=== PATIENT | male | born 1945 | race Caucasian/White ===

== ENCOUNTER → 2017-01-22 | Outpatient (CLI) | payer MEDICARE ==
--- NOTE | 2017-01-22 10:20 | XR ---
EXAMINATION TYPE: XR lumbosacral spine min 4V DATE OF EXAM ORDERED: 01/22/2017 9:52 AM HISTORY: R10.9 chronic rt flank pain. COMPARISON: None. FINDINGS: There is minimal wedging of the L1 vertebral body, likely developmental. Vertebral body he ight and alignment are otherwise maintained. There is no spondylolysis or spondylolisthesis. There is disc space loss at L4-5 and is mild hypertrophic spondylosis at L2-3, L3-4 and L4-5. There is minima l facet arthropathy in the lower lumbar facets. The pedicles are intact. IMPRESSION: 1. NO ACUTE OSSEOUS LESION. 2. MILD DEGENERATIVE CHANGE.
== END | disposition home or self-care (01) ==
LOC: RADXRMAIN 09:30
PROVIDERS: ATTEND Family Medicine
DX: M47.816 Spondylosis without myelopathy or radiculopathy, lumbar region (principal); R10.9 Unspecified abdominal pain
CPT/HCPCS: 72110

== ENCOUNTER 2017-01-25 08:49 | Day surgery (SDC) | payer MEDICARE ==
[2017-01-22 15:59] VITALS: BMI 22.6
[~2017-01-25 08:49] MED LIST: LACTATED RINGERS 1,000 ML IV SCH
[2017-01-25] MEDS ORDERED: LIDOCAINE 1% 20 ML VIAL (10MG/ML) FOR IV START INTRADERMA ONE (10:15)
[2017-01-25 10:24] VITALS: TEMP 97.9
[2017-01-25] MEDS ORDERED: PROPOFOL 10 MG/ML 20 ML VIAL IV ONE (10:44)
[2017-01-25] MEDS ORDERED: LIDOCAINE 1% INJ 10MG/ML (20 ML MDV) ONE (10:44)
--- NOTE | 2017-01-25 10:52 | P.PCN ---
Date of Procedure: 01/25/17 Procedure(s) Performed: BRIEF HISTORY: Patient is a 71-year-old, pleasant, white male, scheduled for an upper endoscopy as a part of evaluation of intermittent dysphagia to solids for the last 1 year duration. He also completed throat irritation and throat discomfort. He is been on Prilosec 20 mg daily for several months with no improvement in his symptoms. He is hence scheduled for an upper endoscopy with possible dilation today. PROCEDURE PERFORMED: Esophagogastroduodenoscopy with biopsy. PREOPERATIVE DIAGNOSIS: Dysphagia. IV sedation per anesthesia. PROCEDURE: After informed consent was obtained, the patient was brought into the endoscopy unit. IV conscious sedation was administered by Anesthesia under continuous monitoring. Initially the Olympus GIF-140 video endoscope was inserted into the mouth. Esophagus intubated without any difficulty. It was gradually advanced into the stomach and duodenum and carefully examined. The bulb and the second part of the duodenum appeared normal. The scope at this time was withdrawn to the stomach, adequately insufflated with air, and upon careful examination, mucosa of the antrum, body, cardia and the fundus appeared normal. The scope was then withdrawn into the esophagus. Moderate size hiatal hernia noted. The GE junction was located at 35 cm from the incisors. 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 The rest of the esophagus appeared normal. There were no erosions or ulcerations seen and the patient tolerated the procedure well. IMPRESSION: 1. 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 2. Moderate size hiatal hernia. RECOMMENDATIONS: The findings of this examination were discussed with the patient as well as his family. He was advised to follow with the biopsy results. If the biopsy confirms presence of Arredondo's esophagus he can have a repeat upper endoscopy in 2 years. In the meantime was advised to increase her Prilosec to 20 mg twice daily and follow antireflux measures.
[2017-01-25 11:02] VITALS: RESP 16
[2017-01-25 11:16] VITALS: BP 139/81; PULSE 62
== END 2017-01-25 11:46 | disposition home or self-care (01) ==
LOC: ORWHC2ENDO 08:49
PROVIDERS: ATTEND Internal Medicine Gastroenterology
DX: R13.10 Dysphagia, unspecified (principal); K22.70 Barrett's esophagus without dysplasia; K44.9 Diaphragmatic hernia without obstruction or gangrene; I10 Essential (primary) hypertension; E78.5 Hyperlipidemia, unspecified; Z79.82 Long term (current) use of aspirin; Z79.899 Other long term (current) drug therapy; Z79.1 Long term (current) use of non-steroidal anti-inflammatories (NSAID)
CPT/HCPCS: 88305; 43239; J2001; J2704

== ENCOUNTER 2020-07-01 09:17 | Day surgery (SDC) | payer MEDICARE ==
[2020-06-29 10:16] VITALS: BMI 23.0
[~2020-07-01 09:17] MED LIST changes: +LIDOCAINE 1% (10MG/ML) FOR IV START INTRADERMA PRN
[2020-07-01 09:37] VITALS: PULSE 58; TEMP 97.8
[2020-07-01] MEDS ORDERED: LACTATED RINGERS 1,000 ML IV ONE (09:37)
[2020-07-01] MEDS ORDERED: PROPOFOL 10 MG/ML 20 ML VIAL IV ONE (10:35)
--- NOTE | 2020-07-01 10:48 | P.PCN ---
Date of Procedure: 07/01/20 Procedure(s) Performed: BRIEF HISTORY: Patient is a 75-year-old, pleasant, white male male scheduled for an upper endoscopy as a part of surveillance of Arredondo's esophagus. PROCEDURE PERFORMED: Esophagogastroduodenoscopy with biopsy. PREOPERATIVE DIAGNOSIS: GERD/Arredondo's esophagus. IV sedation per anesthesia. PROCEDURE: After informed consent was obtained, the patient was brought into the endoscopy unit. IV sedation was administered by Anesthesia under continuous monitoring. Initially the Olympus GIF-140 video endoscope was inserted into the mouth. Esophagus intubated without any difficulty. It was gradually advanced into the stomach and duodenum and carefully examined. The bulb and the second part of the duodenum appeared normal. The scope at this time was withdrawn to the stomach, adequately insufflated with air, and upon careful examination, mucosa of the antrum, body, cardia and the fundus appeared normal. The scope was then withdrawn into the esophagus. Small hiatal hernia noted. The GE junction was located at 35 cm from the incisors. There was long segment Arredondo's esopha vladimir extending from 30-35 cm from the incisors and multiple biopsies were done from this area. Just proximal to the Arredondo's Esophagus There Were Linear Erosions Consistent with LA Grade B Reflux Esophagitis The rest of the esophagus appeared normal. The patient tolerated the procedure well. IMPRESSION: 1. 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 2. Linear erosions in the distal esophagus consistent with LA grade B reflux esophagitis 3. Small hiatal hernia. RECOMMENDATIONS: The findings of this examination were discussed with the patient as well as his family. He was advised to start on Prilosec 20 mg daily and follow antireflux measures. If the biopsy does not show any evidence of dysplasia he can have a repeat upper endoscopy in 2 years.
[2020-07-01 10:55] VITALS: BP 143/86; RESP 16
== END 2020-07-01 11:25 | disposition home or self-care (01) ==
LOC: ORWHC2ENDO 09:17
PROVIDERS: ATTEND Internal Medicine Gastroenterology
DX: K22.70 Barrett's esophagus without dysplasia (principal); K21.0 Gastro-esophageal reflux disease with esophagitis; K44.9 Diaphragmatic hernia without obstruction or gangrene; I10 Essential (primary) hypertension; E78.5 Hyperlipidemia, unspecified; M19.90 Unspecified osteoarthritis, unspecified site; Z79.82 Long term (current) use of aspirin; Z79.899 Other long term (current) drug therapy
CPT/HCPCS: 43239; J2704; 88305

== ENCOUNTER 2023-07-29 11:01 | Inpatient (IN) | payer MEDICARE ==
--- NOTE | 2023-07-29 11:47 | ED ---
General Adult HPI - General Chief complaint: Chest Pain Stated complaint: Chest Pain Time Seen by Provider: 07/29/23 11:06 Source: patient, RN notes reviewed, old records reviewed Mode of arrival: ambulatory Limitations: no limitations - History of Present Illness Initial comments: 78-year-old male presents for evaluation of central chest pain with associated lightheadedness. Symptoms were more severe throughout the middle the night and the patient presents at around 11 AM. He states his symptoms have improved at this time. He has been complaining of intermittent lightheadedness and central chest pain over the past several months. He also has some exertional dyspnea. No prior history of CAD. Denies lower extremity pain or swelling. Denies fever or cough. - Related Data Home Medications Medication Instructions Recorded Confirmed Metoprolol Succinate [Toprol XL] 50 mg PO DAILY 09/20/15 07/29/23 Simvastatin [Zocor] 20 mg PO DAILY 09/20/15 07/29/23 Tamsulosin HCl [Flomax] 0.4 mg PO HS 07/29/23 07/29/23 Allergies Allergy/AdvReac Type Severity Reaction Status Date / Time No Known Allergies Allergy Verified 07/29/23 12:40 Review of Systems ROS Statement: Those systems with pertinent positive or pertinent negative responses have been documented in the HPI. ROS Other: All systems not noted in ROS Statement are negative. Past Medical History Past Medical History: Cancer, GERD/Reflux, Hyperlipidemia, Hypertension, Osteoarthritis (OA) Additional Past Medical History / Comment(s): SKIN CANCER , TROUBLE SWALLOWING, ELEVATED LIVER ENZYMES-PREVIOUSLY WAS A HEAVY DRINKER" History of Any Multi-Drug Resistant Organisms: None Reported Past Surgical History: Hernia Repair, Orthopedic Surgery Additional Past Surgical History / Comment(s): RIGHT SHOULDER SURG, ING. HERNIA, COLONOSCOPY, CATARACT -BILATERAL EYES, EXCISION OF LESION, Past Anesthesia/Blood Transfusion Reactions: No Reported Reaction Past Psychological History: No Psychological Hx Reported Smoking Status: Former smoker Past Alcohol Use History: None Reported Past Drug Use History: None Reported - Past Family History Mother Family Medical History: Cancer Father Family Medical History: Cancer General Exam Limitations: no limitations General appearance: alert, in no apparent distress Head exam: Present: atraumatic, normocephalic Eye exam: Present: normal appearance, PERRL Neck exam: Present: normal inspection. Absent: tenderness, meningismus Respiratory exam: Present: normal lung sounds bilaterally. Absent: respiratory distress Cardiovascular Exam: Present: regular rate, normal rhythm GI/Abdominal exam: Present: soft. Absent: distended, tenderness, guarding Extremities exam: Present: normal inspection, normal capillary refill. Absent: pedal edema, calf tenderness Neurological exam: Present: alert, oriented X3, CN II-XII intact. Absent: motor sensory deficit Psychiatric exam: Present: normal affect, normal mood Skin exam: Present: warm, dry, intact. Absent: cyanosis, diaphoretic Course Vital Signs 07/29/23 11:02 Temperature 97 F L Pulse Rate 61 Respiratory 22 Rate Blood Pressure 157/75 O2 Sat by Pulse 100 Oximetry Medical Decision Making - Medical Decision Making Was pt. sent in by a medical professional or institution (, PA, PATTERN VAULT CLERK, urgent care, hospital, or skilled nursing...) When possible be specific @ -No Did you speak to anyone other than the patient for history (EMS, parent, family, police, friend...)? What history was obtained from this source @ -No Did you review nursing and triage notes (agree or disagree)? Why? @ -I reviewed and agree with nursing and triage notes Were old charts reviewed (outside hosp., previous admission, EMS record, old EKG, old radiological studies, urgent care reports/EKG's, skilled nursing records)? Report findings @ -No old charts were reviewed Differential Diagnosis (chest pain, altered mental status, abdominal pain women, abdominal pain men, vaginal bleeding, weakness, fever, dyspnea, syncope, head ache, dizziness, GI bleed, back pain, seizure, CVA, palpatations, mental health, musculoskeletal)? @ Differential Chest Pain: Stable Angina, Unstable Angina, STEMI, NSTEMI Aortic Dissection, Pneumothorax, Musculoskeletal, Esophageal Spasm GERD, Cholecystitis, Pancreatitis, Zoster, this is not meant to be an all-inclusive list. EKG interpreted by me (3pts min.). @ -[Sinus rhythm left axis deviation, intraventricular conduction delay rate is 63, ME interval 143, QRS duration 108, QTC 408, no old for comparison. X-rays interpreted by me (1pt min.). @ -Chest x-ray negative for acute cardiopulmonary findings CT interpreted by me (1pt min.). @ -None done U/S interpreted by me (1pt. min.). @ -None done What testing was considered but not performed or refused? (CT, X-rays, U/S, labs)? Why? @ -None What meds were considered but not given or refused? Why? @ -None Did you discuss the management of the patient with other professionals (professionals i.e. , PA, PATTERN VAULT CLERK, lab, RT, psych nurse, neonatal social worker, chainstitch sewing machine operator, teacher, field health officer, case sealer)? Give summary @ Case discussed with Dr. Rodríguez who will admit and Dr. No covering for cardiology Was smoking cessation discussed for >3mins.? @ -No Was critical care preformed (if so, how long)? @ -yes 35 min Were there social determinants of health that impacted care today? How? (Homelessness, low income, unemployed, alcoholism, drug addiction, transportation, low edu. Level, literacy, decrease access to med. care, halfway, rehab)? @ -No Was there de-escalation of care discussed even if they declined (Discuss DNR or withdrawal of care, Hospice)? DNR status @ -No What co-morbidities impacted this encounter? (DM, HTN, Smoking, COPD, CAD, Cancer, CVA, ARF, Chemo, Hep., AIDS, mental health diagnosis, sleep apnea, morbid obesity)? @ -None Was patient admitted / discharged? Hospital course, mention meds given and route, prescriptions, significant lab abnormalities, going to OR and other pertinent info. @ -[78-year-old male with an episode of chest pain which began yesterday evening lasting several hours. Substernal chest pain and pressure. No prior history of CAD. EKG shows a nonspecific intraventricular conduction delay without ST segment elevation, sinus rhythm. Chest x-ray is clear. Normal CBC, normal CMP, troponin is 0.29. Patient's chest pain represents and non-ST segment elevated TN or he is chest pain-free while in the emergency department. Undiagnosed new problem with uncertain prognosis? @ -No Drug Therapy requiring intensive monitoring for toxicity (Heparin, Nitro, Insulin, Cardizem)? @ -No Were any procedures done? @ -No Diagnosis/symptom? @ -NSTEMI Acute, or Chronic, or Acute on Chronic? @ -[acute Uncomplicated (without systemic symptoms) or Complicated (systemic symptoms)? @ -[complicated Side effects of treatment? @ -No Exacerbation, Progression, or Severe Exacerbation? @ -No Poses a threat to life or bodily function? How? (Chest pain, USA, TN, pneumonia, PE, COPD, DKA, ARF, appy, cholecystitis, CVA, Diverticulitis, Homicidal, Suicidal, threat to staff... and all critical care pts) @ -[yes, ACS - Lab Data Result diagrams: 07/29/23 11:42 07/29/23 11:42 Lab Results 07/29/23 07/29/23 07/29/23 Range/Units 11:42 11:42 11:42 WBC 4.2 (3.8-10.6) k/uL RBC 4.41 (4.30-5.90) m/uL Hgb 14.1 (13.0-17.5) gm/dL Hct 42.2 (39.0-53.0) % MCV 95.7 (80.0-100.0) fL MCH 32.0 (25.0-35.0) pg MCHC 33.4 (31.0-37.0) g/dL RDW 13.1 (11.5-15.5) % Plt Count 136 L (150-450) k/uL MPV 7.8 Neutrophils % 78 % Lymphocytes % 14 % Monocytes % 5 % Eosinophils % 2 % Basophils % 0 % Neutrophils # 3.3 (1.3-7.7) k/uL Lymphocytes # 0.6 L (1.0-4.8) k/uL Monocytes # 0.2 (0-1.0) k/uL Eosinophils # 0.1 (0-0.7) k/uL Basophils # 0.0 (0-0.2) k/uL PT 10.3 (9.0-12.0) sec INR 1.0 (<1.2) APTT 22.2 (22.0-30.0) sec Sodium 139 (137-145) mmol/L Potassium 4.7 (3.5-5.1) mmol/L Chloride 102 (98-107) mmol/L Carbon Dioxide 29 (22-30) mmol/L Anion Gap 8 mmol/L BUN 30 H (9-20) mg/dL Creatinine 1.09 (0.66-1.25) mg/dL Est GFR (CKD-EPI)AfAm 76 (>60 ml/min/1.73 sqM) Est GFR (CKD-EPI)NonAf 66 (>60 ml/min/1.73 sqM) Glucose 191 H (74-99) mg/dL Calcium 9.2 (8.4-10.2) mg/dL Magnesium 2.0 (1.6-2.3) mg/dL Total Bilirubin 1.1 (0.2-1.3) mg/dL AST 26 (17-59) U/L ALT 23 (4-49) U/L Alkaline Phosphatase 39 (38-126) U/L Troponin I (0.000-0.034) ng/mL NT-Pro-B Natriuret Pep 635 pg/mL Total Protein 6.6 (6.3-8.2) g/dL Albumin 4.2 (3.5-5.0) g/dL 07/29/23 Range/Units 11:42 WBC (3.8-10.6) k/uL RBC (4.30-5.90) m/uL Hgb (13.0-17.5) gm/dL Hct (39.0-53.0) % MCV (80.0-100.0) fL MCH (25.0-35.0) pg MCHC (31.0-37.0) g/dL RDW (11.5-15.5) % Plt Count (150-450) k/uL MPV Neutrophils % % Lymphocytes % % Monocytes % % Eosinophils % % Basophils % % Neutrophils # (1.3-7.7) k/uL Lymphocytes # (1.0-4.8) k/uL Monocytes # (0-1.0) k/uL Eosinophils # (0-0.7) k/uL Basophils # (0-0.2) k/uL PT (9.0-12.0) sec INR (<1.2) APTT (22.0-30.0) sec Sodium (137-145) mmol/L Potassium (3.5-5.1) mmol/L Chloride (98-107) mmol/L Carbon Dioxide (22-30) mmol/L Anion Gap mmol/L BUN (9-20) mg/dL Creatinine (0.66-1.25) mg/dL Est GFR (CKD-EPI)AfAm (>60 ml/min/1.73 sqM) Est GFR (CKD-EPI)NonAf (>60 ml/min/1.73 sqM) Glucose (74-99) mg/dL Calcium (8.4-10.2) mg/dL Magnesium (1.6-2.3) mg/dL Total Bilirubin (0.2-1.3) mg/dL AST (17-59) U/L ALT (4-49) U/L Alkaline Phosphatase (38-126) U/L Troponin I 0.299 H* (0.000-0.034) ng/mL NT-Pro-B Natriuret Pep pg/mL Total Protein (6.3-8.2) g/dL Albumin (3.5-5.0) g/dL Critical Care Time Critical Care Time: Yes Total Critical Care Time: 35 Disposition Clinical Impression: Acute non-ST elevation myocardial infarction (NSTEMI) Disposition: ADMITTED IP TO THIS HOSP Condition: Serious Is patient prescribed a controlled substance at d/c from ED?: No Referrals: Gus Rodríguez MD [Primary Care Provider] - 1-2 days Time of Disposition: 12:57
[2023-07-29 11:49] LABS: Basophils % (A) 0 %; Eosinophils # (A) 0.1 k/uL (0-0.7); Eosinophils % (A) 2 %; HCT 42.2 % (39.0-53.0); HGB 14.1 gm/dL (13.0-17.5); Lymphocytes # (A) 0.6 k/uL (1.0-4.8); Lymphocytes % (A) 14 %; MCHC 33.4 g/dL (31.0-37.0); MCV 95.7 fL (80.0-100.0); Mean Platelet Volume 7.8; Monocytes # (A) 0.2 k/uL (0-1.0); Monocytes % (A) 5 %; Neutrophils # (A) 3.3 k/uL (1.3-7.7); Neutrophils % (A) 78 %; Platelet Count 136 k/uL (150-450); RBC 4.41 m/uL (4.30-5.90); RDW 13.1 % (11.5-15.5); WBC 4.2 k/uL (3.8-10.6)
--- NOTE | 2023-07-29 11:55 | XR ---
EXAMINATION TYPE: XR chest 2V DATE OF EXAM: 07/29/2023 COMPARISON: NONE TECHNIQUE: PA and lateral views submitted. HISTORY: Chest pain FINDINGS: The lungs are clear and there is no pneumothorax, pleural effusion, or focal pneumonia. Heart size normal and no overt failure. Osseous structures demonstrate hypertrophic and degenerative changes of the spine. Hyperinflation suggests COPD. IMPRESSION: 1. No acute process.
[2023-07-29 11:58] LABS: Partial Thromboplastin Time 22.2 sec (22.0-30.0); Prothrombin Time 10.3 sec (9.0-12.0)
[2023-07-29 12:05] LABS: ALT 23 U/L (4-49); AST 26 U/L (17-59); African American GFR (CKD) 76 (>60 ml/min/1.73 sqM); Albumin 4.2 g/dL (3.5-5.0); Alkaline Phosphatase 39 U/L (38-126); Anion Gap 8 mmol/L; Blood Urea Nitrogen 30 mg/dL (9-20); Calcium 9.2 mg/dL (8.4-10.2); Carbon Dioxide 29 mmol/L (22-30); Chloride 102 mmol/L (98-107); Glucose 191 mg/dL (74-99); Non-African American GFR(CKD) 66 (>60 ml/min/1.73 sqM); Potassium 4.7 mmol/L (3.5-5.1); Sodium 139 mmol/L (137-145); Total Bilirubin 1.1 mg/dL (0.2-1.3); Total Protein 6.6 g/dL (6.3-8.2)
[2023-07-29 12:07] LABS: NT-Pro-B-Type Natriuretic Pept 635 pg/mL
[2023-07-29] MEDS ORDERED: NITROGLYCERIN SL TABS 0.4 MG TAB SUBLINGUAL PRN ×3 (12:47→17:11)
[2023-07-29] MEDS ORDERED: ASPIRIN 325 MG TAB PO STA ×2 (12:47→14:31)
[2023-07-29] MEDS ORDERED: HEPARIN SODIUM 1,000 UN/ML (10ML VL) IV ONE (12:47)
[2023-07-29] MEDS ORDERED: HEPARIN SOD,PORK IN 0.45% NACL 25,000 UNIT in 0.45% NACL 1 250ML.BAG IV SCH (13:00)
[2023-07-29] MEDS ORDERED: ATORVASTATIN 80 MG TAB PO STA (14:31)
[2023-07-29] MEDS ORDERED: ALPRAZolam 0.25 MG TAB PO PRN (14:31)
[2023-07-29] MEDS ORDERED: ALPRAZolam 0.5 MG TAB PO PRN (14:31)
--- NOTE | 2023-07-29 14:42 | P.CRDCN ---
History of Present Illness History of present illness: HISTORY OF PRESENT ILLNESS: This is a 78-year-old female with a past medical history significant for hypertension and hyperlipidemia. Patient does not follow with a hvac mechanical engineer. We have been asked to see the patient in consultation for chest pain. Patient examined at the bedside. Patient states he started feeling short of breath with exertion back in May. He states that yesterday evening around 10 PM he began to have chest pain. He states the pain was in the middle of his chest and radiated into his back between his shoulder blades. He also reports feeling short of breath and states history he felt like he could not catch his breath. He denies any nausea or vomiting. He states that he went to lay down for a while and thought maybe the pain would go away. He states he continued to have pain intermittently throughout the night. This morning, his girlfriend was on his way over to pick him up for a doctor's appointment. He told her about his symptoms and she decided to bring him to the emergency room for further evaluation instead. At the time of examination, the patient reports minimal discomfort and is rating it 1/10. * EKG reveals sinus mechanism with nonspecific ST-T wave changes. Repeat EKG reveals biphasic T waves in inferior leads. * Chest xray negative for acute process * Laboratory data: WBC 4.2. Hemoglobin 14.1. Platelet count 136. Sodium 139. Potassium 4.7. BUN 30. Creatinine 1.09. Troponin 0.299. ProBNP 635. * Current home cardiac medications include simvastatin 20 mg daily and metoprolol succinate 50 mg daily REVIEW OF SYSTEMS: At the time of my exam: CONSTITUTIONAL: Denies fever or chills. HEENT: Denies blurred vision, vision changes, or eye pain. Denies hemoptysis CARDIOVASCULAR: Denies chest pain. Denies orthopnea. Denies PND. Denies palpitations RESPIRATORY: Denies shortness of breath. GASTROINTESTINAL: Denies abdominal pain. Denies nausea or vomiting. HEMATOLOGIC: Denies bleeding disorders. GENITOURINARY: Denies any blood in urine. SKIN: Denies pruitis. Denies rash. PHYSICAL EXAM: VITAL SIGNS: Reviewed. GENERAL: Well-developed in no acute distress. HEENT: Head is normocephalic. Pupils are equal, round. Sclerae anicteric. Mucous membranes of the mouth are moist. Neck supple. No JVD or thyromegaly LUNGS: Respirations even and unlabored. Lungs essentially clear to auscultation bilaterally. HEART: Regular rate and rhythm. S1 and S2 heard. ABDOMEN: Soft. Nondistended. Nontender. EXTREMITIES: Normal range of motion. No clubbing or cyanosis. Peripheral pulses intact. No lower extremity edema NEUROLOGIC: Awake and alert. Oriented x 3. ASSESSMENT: Non-STEMI Hypertension Hyperlipidemia PLAN: Obtain 2-D echo to assess cardiac structure and function Continue IV heparin Begin IV nitroglycerin Add aspirin 81 mg daily and atorvastatin 80 mg at night Continue metoprolol Patient to undergo cardiac catheterization today with Dr. No Further recommendations pending patient's course Nurse practitioner note has been reviewed by physician. Signing provider agrees with the documented findings, assessment, and plan of care. Past Medical History Past Medical History: Cancer, GERD/Reflux, Hyperlipidemia, Hypertension, Osteoarthritis (OA) Additional Past Medical History / Comment(s): SKIN CANCER , TROUBLE SWALLOWING, ELEVATED LIVER ENZYMES-PREVIOUSLY WAS A HEAVY DRINKER" History of Any Multi-Drug Resistant Organisms: None Reported Past Surgical History: Hernia Repair, Orthopedic Surgery Additional Past Surgical History / Comment(s): RIGHT SHOULDER SURG, ING. HERNIA, COLONOSCOPY, CATARACT -BILATERAL EYES, EXCISION OF LESION, Past Anesthesia/Blood Transfusion Reactions: No Reported Reaction Past Psychological History: No Psychological Hx Reported Smoking Status: Former smoker Past Alcohol Use History: None Reported Past Drug Use History: None Reported - Past Family History Mother Family Medical History: Cancer Father Family Medical History: Cancer Medications and Allergies Home Medications Medication Instructions Recorded Confirmed Type Metoprolol Succinate [Toprol XL] 50 mg PO DAILY 09/20/15 07/29/23 History Simvastatin [Zocor] 20 mg PO DAILY 09/20/15 07/29/23 History Tamsulosin HCl [Flomax] 0.4 mg PO HS 07/29/23 07/29/23 History Allergies Allergy/AdvReac Type Severity Reaction Status Date / Time No Known Allergies Allergy Verified 07/29/23 12:40 Physical Exam Vitals: Vital Signs Temp Pulse Resp BP Pulse Ox 07/29/23 13:20 60 18 141/78 100 07/29/23 11:02 97 F L 61 22 157/75 100 Intake and Output 07/28/23 07/29/23 07/29/23 22:59 06:59 14:59 Other: Weight 72.575 kg Results 07/29/23 11:42 07/29/23 11:42 Cardiac Enzymes 07/29/23 07/29/23 Range/Units 11:42 11:42 AST 26 (17-59) U/L Troponin I 0.299 H* (0.000-0.034) ng/mL Coagulation 07/29/23 Range/Units 11:42 PT 10.3 (9.0-12.0) sec APTT 22.2 (22.0-30.0) sec CBC 07/29/23 Range/Units 11:42 WBC 4.2 (3.8-10.6) k/uL RBC 4.41 (4.30-5.90) m/uL Hgb 14.1 (13.0-17.5) gm/dL Hct 42.2 (39.0-53.0) % Plt Count 136 L (150-450) k/uL Comprehensive Metabolic Panel 07/29/23 Range/Units 11:42 Sodium 139 (137-145) mmol/L Potassium 4.7 (3.5-5.1) mmol/L Chloride 102 (98-107) mmol/L Carbon Dioxide 29 (22-30) mmol/L BUN 30 H (9-20) mg/dL Creatinine 1.09 (0.66-1.25) mg/dL Glucose 191 H (74-99) mg/dL Calcium 9.2 (8.4-10.2) mg/dL AST 26 (17-59) U/L ALT 23 (4-49) U/L Alkaline Phosphatase 39 (38-126) U/L Total Protein 6.6 (6.3-8.2) g/dL Albumin 4.2 (3.5-5.0) g/dL Current Medications Generic Name Dose Route Start Last Admin Trade Name Freq PRN Reason Stop Dose Admin Alprazolam 0.25 mg 07/29/23 14:31 Alprazolam 0.25 Mg Tab PO Q6HR PRN Mild Anxiety Alprazolam 0.5 mg 07/29/23 14:31 Alprazolam 0.5 Mg Tab PO Q6HR PRN Moderate Anxiety Aspirin 325 mg 07/30/23 09:00 Aspirin 325 Mg Tab PO DAILY CE Heparin Sodium/Sodium Chloride 250 mls @ 8.709 mls/hr 10/02/23 13:00 07/29/23 13:22 25,000 unit/ Sodium Chloride IV 12 units/kg/hr .Q24H CE 8.709 mls/hr Administration Protocol 12 UNITS/KG/HR Heparin Sodium (Porcine) 10, 1,001 mls @ 999 mls/hr 07/30/23 07:00 000 unit/ Sodium Chloride IRRIGATION 07/30/23 23:00 ONCE PRN INTRA-OP Heparin Sodium (Porcine) 2,500 250.5 mls @ 250 mls/hr 07/30/23 07:00 unit/ Sodium Chloride IRRIGATION 07/30/23 23:00 ONCE PRN INTRA-OP Sodium Chloride 1,000 ml/ IV 1,000 mls @ 72.575 mls/hr 07/29/23 14:45 Solution IV .[id number] CE 1 ML/KG/HR Nitroglycerin/Dextrose 50 mg/ 250 mls @ 1.5 mls/hr 07/29/23 14:45 IV Solution IV .Q24H CE Protocol 5 MCG/MIN Metoprolol Tartrate 25 mg 07/29/23 21:00 Metoprolol Tartrate 25 Mg Tab PO BID CE Nitroglycerin 0.4 mg 07/29/23 12:47 Nitroglycerin Sl Tabs 0.4 Mg Tab SUBLINGUAL Q5M PRN Chest Pain Nitroglycerin 0.4 mg 07/29/23 14:31 Nitroglycerin Sl Tabs 0.4 Mg Tab SUBLINGUAL Q5M PRN Chest Pain Intake and Output 07/28/23 07/29/23 07/29/23 22:59 06:59 14:59 Other: Weight 72.575 kg Patient Weight 07/30/23 06:59 Weight 72.575 kg 07/29/23 11:42 07/29/23 11:42
[2023-07-29] MEDS ORDERED: NITROGLYCERIN-D5W PMX 50 MG in DEXTROSE/WATER 1 250ML.BAG IV SCH (14:45)
[2023-07-29] MEDS: SODIUM CHLORIDE 0.9% 1,000 ML in EMPTY BAG 1 BAG IV SCH (14:54)
[2023-07-29] MEDS ORDERED: HEPARIN SODIUM 1,000 UN/ML (10ML VL) ONE (15:49)
[2023-07-29] MEDS ORDERED: VERAPAMIL 2.5 MG/ML 2 ML AMP ONE (15:49)
[2023-07-29] MEDS ORDERED: LIDOCAINE 1% INJ 10MG/ML (20 ML MDV) ONE (15:49)
[2023-07-29] MEDS ORDERED: IV FLUID CONTINUATION 1,000 ML IV ONE (16:10)
[2023-07-29] MEDS ORDERED: MIDAZOLAM 2 MG/2 ML VIAL IVP ONE (16:23)
[2023-07-29] MEDS ORDERED: LIDOCAINE 1% INJ 10MG/ML (5 ML VIAL-PF) SQ ONE (16:25)
[2023-07-29] MEDS ORDERED: VERAPAMIL SYRINGE (5 MG/10 ML) INTRAARTER ONE (16:29)
[2023-07-29] MEDS: HEPARIN SODIUM 1,000 UN/ML (10ML VL) IV ONE ×2 (16:45→17:05)
[2023-07-29] MEDS ORDERED: CLOPIDOGREL 75 MG TAB PO ONE (16:50)
[2023-07-29] MEDS ORDERED: CLOPIDOGREL 75 MG TAB ONE (16:51)
[2023-07-29] MEDS ORDERED: NITROGLYCERIN 1000MCG/10ML SYRINGE INTRACORON ONE (17:02)
[2023-07-29] MEDS ORDERED: IOPAMIDOL-370 100ML BTL INJ ONE (17:02)
[2023-07-29] MEDS ORDERED: MAG HYDROX/AL HYDROX/SIMETH 30 ML CUP PO PRN (17:11)
[2023-07-29] MEDS ORDERED: ATROPINE SULFATE 0.1 MG/ML 10ML SYRINGE IV PRN (17:11)
[2023-07-29] MEDS ORDERED: ZOLPIDEM 5 MG TAB PO PRN (17:11)
[2023-07-29] MEDS ORDERED: RX INFO: IV CONTRAST WAS GIVEN 1 EACH MISC MISCELLANE PRN (17:11)
[2023-07-29] MEDS ORDERED: SODIUM CHLORIDE 0.9% 1,000 ML in EMPTY BAG 1 BAG IV SCH (17:15)
--- NOTE | 2023-07-29 17:18 | P.PCN ---
Date of Procedure: 07/29/23 Operative Findings: CARDIAC CATHETERIZATION AND PERCUTANEOUS CORONARY INTERVENTION PERFORMING PHYSICIAN: Renato No MD, [facility] PROCEDURE PERFORMED: 1. Selective right and left coronary angiogram 2. Left heart catheterization 3. Successful stenting of proximal RCA using 3.25 x 15 mm Xience ROSHAN with an excellent angiographic results 4. Adjunctive use of intravascular imaging 5. Ultrasound guided access of the right radial artery INDICATION: Acute non-ST elevation myocardial infarction COMPLICATION: None APPROACH: Right radial artery LEVEL OF SEDATION: Moderate with the sedation time off 44 minutes PROCEDURE DESCRIPTION: After obtaining an informed consent the patient was brought to the cardiac botany laboratory assistant. The right radial artery was cannulated using puncture technique under ultrasound guidance and the micropuncture wire passed easily then I placed a 6- Irish sheath at the right radial artery. Subsequently anticoagulation was initiated using heparin with continuous ACT monitoring. Selective right and left coronary angiogram performed using JR4 and JL 3.5 catheters. Left heart catheterization was performed using the JR4 catheter which cross the aortic valve then we did pullback across the valve. The procedure was completed was no complication. After that I did intervene on the right coronary artery. SELECTIVE CORONARY ANGIOGRAM: The right coronary artery: Large caliber vessel and a dominant vessel. The proximal RCA has a critical lesion appeared to be in the range of 99.9%. That by the bifurcation of the acute marginal branch. The mid RCA has intermediate disease only and the RCA distally appeared to have mild disease only and bifurcates into PDA and PLV branches. Left main: The left main is calcified was mild disease only The left circumflex: Large caliber vessel nondominant vessel. The LCx has mild disease only and gives rises into the first and second and third OM branches all appear to have mild disease only. The left anterior descending artery: The proximal LAD appears to have mild disease only. The mid LAD after the bifurcation of the diagonal branch has a lesion appears to be in the range of 60-70%. The LAD distally appears to have mild disease only HEMODYNAMICS: The LVEDP was 4 mmHg was no significant gradient across aortic valve PCI OF THE RCA: Anticoagulation was initiated using heparin with continuous ACT monitoring. Subsequently I did engage the right coronary artery using all-right guiding catheter. After that I did wired using a whisper wire. Intravascular ultrasound was advanced over the wire but did not cross the lesion. I was able to image the very proximal right coronary artery which showed a diameter around 3. 0 millimeter to 3.25 mm. I predilated using 3 mm noncompliant balloon and subsequently I deployed 3.25 x 15 mm stent which was postdilated using 3.5 mm NC balloon. Final angiogram showed good angiographic results was LORAINE-3 flow. The procedure was completed was no complication CONCLUSION: 1. Critical disease involving the proximal right coronary artery. I did perform successful stenting of the RCA. The patient still have residual intermediate disease involving the mid to distal RCA 2. Intermediate to severe disease involving the mid left anterior descending artery 3. Normal left sided filling pressure POSTPROCEDURE MANAGEMENT: 1. Dual antiplatelet therapy using aspirin and Plavix for 12 month 2. Aggressive cholesterol control 3. Follow-up with the patient
[2023-07-29] MEDS: METOPROLOL TARTRATE 25 MG TAB PO SCH (20:39)
[2023-07-29] MEDS ORDERED: ACETAMINOPHEN TAB 500 MG TAB PO PRN (21:33)
[2023-07-30] MEDS: SODIUM CHLORIDE 0.9% 1,000 ML in EMPTY BAG 1 BAG IV SCH (01:42)
[2023-07-30] MEDS ORDERED: HEPARIN SODIUM,PORCINE 10,000 UNIT in SODIUM CHLORIDE 0.9% 1,000 ML IRRIGATION PRN (07:00)
[2023-07-30] MEDS ORDERED: HEPARIN SODIUM,PORCINE (1 ML) 2,500 UNIT in SODIUM CHLORIDE 0.9% 250 ML IRRIGATION PRN (07:00)
[2023-07-30 08:15] LABS: African American GFR (CKD) 83 (>60 ml/min/1.73 sqM); Non-African American GFR(CKD) 72 (>60 ml/min/1.73 sqM)
[2023-07-30] MEDS ORDERED: ASPIRIN 325 MG TAB PO SCH (09:00)
--- NOTE | 2023-07-30 09:14 | P.HPIM ---
History of Present Illness H&P Date: 07/30/23 Chief Complaint: Chest pain This is a 78-year-old male who presented to the emergency department with complaints of central chest pain and associated lightheadedness. His pain did start on Saturday night and progressively increased through Saturday morning. Patient reports pain also radiated between his shoulder blades, and also was feeling short of breath he tried to lay down but the pain did not go away. Heart catheterization was performed yesterday by Dr. No, critical disease involving the proximal right coronary artery was found and successful stenting of the RCA was completed. Dr. No is recommending dual antiplatelet therapy using aspirin and Plavix for 12 months and aggressive cholesterol control. Patient is seen this morning sitting up in bed, he reports he is feeling much better Review of Systems Constitutional: Denies chills, Denies fever Cardiovascular: Reports chest pain, Reports dyspnea on exertion Respiratory: Reports dyspnea, Denies cough Gastrointestinal: Denies abdominal pain, Denies nausea, Denies vomiting Musculoskeletal: Denies arm numbness/tingling, Denies leg numbness/tingling Neurological: Denies headaches, Denies weakness Past Medical History Past Medical History: Cancer, GERD/Reflux, Hyperlipidemia, Hypertension, Osteoarthritis (OA) Additional Past Medical History / Comment(s): SKIN CANCER , TROUBLE SWALLOWING, ELEVATED LIVER ENZYMES-PREVIOUSLY WAS A HEAVY DRINKER", incontinent at night History of Any Multi-Drug Resistant Organisms: None Reported Past Surgical History: Hernia Repair, Orthopedic Surgery Additional Past Surgical History / Comment(s): RIGHT SHOULDER SURG, ING. HERNIA, COLONOSCOPY, CATARACT -BILATERAL EYES, EXCISION OF LESION, Past Anesthesia/Blood Transfusion Reactions: No Reported Reaction Past Psychological History: No Psychological Hx Reported Smoking Status: Former smoker Past Alcohol Use History: None Reported Additional Past Alcohol Use History / Comment(s): QUIT ALCOHOL USE 2008 BEERS A DAY / STARTED SMOKING AT AGE 19 QUIT SMOKING AT AGE 37 SMOKED 1 PPD Past Drug Use History: None Reported - Past Family History Mother Family Medical History: Cancer Father Family Medical History: Cancer Medications and Allergies Home Medications Medication Instructions Recorded Confirmed Type Metoprolol Succinate [Toprol XL] 50 mg PO DAILY 09/20/15 07/29/23 History Simvastatin [Zocor] 20 mg PO DAILY 09/20/15 07/29/23 History Tamsulosin HCl [Flomax] 0.4 mg PO HS 07/29/23 07/29/23 History Allergies Allergy/AdvReac Type Severity Reaction Status Date / Time No Known Allergies Allergy Verified 07/29/23 12:40 Physical Exam Vitals: Vital Signs Temp Pulse Pulse Resp BP BP Pulse Ox 07/30/23 08:10 97.8 F 58 L 17 128/64 97 07/30/23 08:01 96 07/30/23 04:00 97.7 F 63 16 104/61 96 07/30/23 02:00 60 16 07/29/23 23:55 97.6 F 60 16 109/66 98 07/29/23 20:00 98.0 F 64 16 130/70 95 07/29/23 18:56 69 17 123/71 97 07/29/23 18:26 66 17 122/70 97 07/29/23 17:56 62 17 127/69 98 07/29/23 17:50 63 07/29/23 17:41 63 17 122/71 97 07/29/23 17:26 98.1 F 70 17 125/55 97 07/29/23 16:02 97.4 F L 60 18 144/67 99 07/29/23 13:20 60 18 141/78 100 07/29/23 11:02 97 F L 61 22 157/75 100 FiO2 07/30/23 08:10 07/30/23 08:01 21 07/30/23 04:00 07/30/23 02:00 07/29/23 23:55 07/29/23 20:00 07/29/23 18:56 07/29/23 18:26 07/29/23 17:56 07/29/23 17:50 07/29/23 17:41 07/29/23 17:26 07/29/23 16:02 07/29/23 13:20 07/29/23 11:02 Intake and Output 07/29/23 07/30/23 07/30/23 22:59 06:59 14:59 Intake Total 250 Balance 250 Intake: IV 250 Other: Voiding Method Toilet Toilet # Voids 1 1 Weight 72.575 kg - Constitutional General appearance: cooperative, no acute distress - EENT Eyes: PERRLA - Neck Neck: no lymphadenopathy, normal ROM, no rigidity - Respiratory Respiratory: bilateral: CTA - Cardiovascular Rhythm: regular Heart sounds: normal: S1, S2 - Gastrointestinal General gastrointestinal: soft, no tenderness - Integumentary Integumentary: normal, normal turgor - Psychiatric Psychiatric: A&O x's 3, appropriate affect, intact judgment & insight Results CBC & Chem 7: 07/29/23 11:42 07/30/23 06:32 Labs: Abnormal Lab Results - Last 24 Hours (Table) 07/29/23 07/29/23 07/29/23 Range/Units 11:42 11:42 11:42 Plt Count 136 L (150-450) k/uL Lymphocytes # 0.6 L (1.0-4.8) k/uL BUN 30 H (9-20) mg/dL Glucose 191 H (74-99) mg/dL Troponin I 0.299 H* (0.000-0.034) ng/mL 07/29/23 Range/Units 14:55 Plt Count (150-450) k/uL Lymphocytes # (1.0-4.8) k/uL BUN (9-20) mg/dL Glucose (74-99) mg/dL Troponin I 0.887 H* (0.000-0.034) ng/mL Thrombosis Risk Factor Assmnt - Choose All That Apply Any of the Below Risk Factors Present?: No Each Risk Factor Represents 3 Points: Age 75 years or older Thrombosis Risk Factor Assessment Total Risk Factor Score: 3 Thrombosis Risk Factor Assessment Level: Moderate Risk Assessment and Plan (1) Acute non-ST elevation myocardial infarction (NSTEMI) Current Visit: Yes Status: Acute Code(s): I21.4 - NON-ST ELEVATION (NSTEMI) MYOCARDIAL INFARCTION SNOMED Code(s): 563088054 (2) Hypertension Current Visit: Yes Status: Acute Code(s): I10 - ESSENTIAL (PRIMARY) HY PERTENSION SNOMED Code(s): 04134861 (3) Hyperlipidemia Current Visit: Yes Status: Acute Code(s): E78.5 - HYPERLIPIDEMIA, UNSPECIFIED SNOMED Code(s): 49355091 Plan: Successful heart catheterization with stenting of RCA yesterday Continue to follow appropriate postop care Patient may be discharged when stable and cleared by cardiology Patient seen and evaluated by nurse practitioner, physician in agreement with plan
[2023-07-30] MEDS: METOPROLOL TARTRATE 25 MG TAB PO SCH ×2 (09:35→20:34)
[2023-07-30] MEDS: ASPIRIN 81 MG PO SCH (09:35)
[2023-07-30] MEDS: CLOPIDOGREL 75 MG TAB PO SCH (09:36)
[2023-07-30 11:45] LABS: Chol/HDL Ratio 1.92 Ratio; LDL Cholesterol,Calculated 29.6 mg/dL (0.0-131.0); VLDL Calculation 9.62 mg/dL (5.00-40.00)
--- NOTE | 2023-07-30 12:52 | CA ---
Transthoracic Echo Report Name: Mauricio Rincon Age: 78 Gender: M : 1945 Exam Date: 07/30/2023 08:41 Exam Location: [place] [facility] Ht (in): 70 Wt (lb): 160 Ordering Physician: Jarrett De La Fuente MD Attending/Referring Phys: [id number], Sudhakar Signal Mechanic Phyllis Germain [facility] Procedure CPT: Indications: nstemi Cardiac Hx: Technical Quality: Fair Contrast 1: Total Dose (mL): Contrast 2: Total Dose (mL): MEASUREMENTS (Male / Female) Normal Values 2D ECHO LV Diastolic Diameter PLAX 5.1 cm 4.2 - 5.9 / 3.9 - 5.3 cm LV Systolic Diameter PLAX 3.7 cm IVS Diastolic Thickness 0.8 cm 0.6 - 1.0 / 0.6 - 0.9 cm LVPW Diastolic Thickness 0.9 cm 0.6 - 1.0 / 0.6 - 0.9 cm LV Relative Wall Thickness 0.3 LVOT Diameter 2.0 cm LV Diastolic Volume MOD BP 73.5 cm??? 67 - 155 / 56 - 104 cm??? LV Systolic Volume MOD BP 38.8 cm??? 22 - 58 / 19 - 49 cm??? LV Ejection Fraction MOD BP 47.2 % >= 55 % LV Cardiac Index MOD BP 1007.9 cm???/min???m??? LV Diastolic Volume MOD 4C 75.1 cm??? LV Systolic Volume MOD 4C 39.1 cm??? LV Ejection Fraction MOD 4C 48.0 % LV Cardiac Index MOD 4C 1045.4 cm???/min???m??? LV Diastolic Length 4C 7.3 cm LV Systolic Length 4C 6.5 cm LV Diastolic Volume MOD 2C 70.7 cm??? LV Systolic Volume MOD 2C 38.9 cm??? LV Ejection Fraction MOD 2C 45.0 % LV Cardiac Index MOD 2C 924.2 cm???/min???m??? LV Diastolic Length 2C 7.5 cm LV Systolic Length 2C 6.6 cm Ascending Aorta Diameter 3.3 cm M-MODE Aortic Root Diameter MM 2.8 cm LA Systolic Diameter MM 3.7 cm LA Ao Ratio MM 1.3 AV Cusp Separation MM 1.9 cm DOPPLER AV Peak Velocity 135.1 cm/s AV Peak Gradient 7.3 mmHg AV Mean Velocity 90.0 cm/s AV Mean Gradient 3.6 mmHg AV Velocity Time Integral 31.6 cm LVOT Peak Velocity 70.3 cm/s LVOT Peak Gradient 2.0 mmHg LVOT Velocity Time Integral 18.4 cm LVOT Stroke Volume 55.4 cm??? LVOT Stroke Volume Index 29.2 ml/m??? LVOT Cardiac Index 1608.8 cm???/min???m??? AV Area Cont Eq vti 1.8 cm??? AV Area Cont Eq pk 1.6 cm??? MV Peak Velocity 136.3 cm/s MV Peak Gradient 7.4 mmHg MV Mean Velocity 72.0 cm/s MV Mean Gradient 2.6 mmHg MV Velocity Time Integral 47.2 cm MR Peak Velocity 492.7 cm/s MR Peak Gradient 97.1 mmHg Mitral E Point Velocity 119.6 cm/s Mitral A Point Velocity 95.6 cm/s Mitral E to A Ratio 1.3 MV Deceleration Time 212.4 ms LV E' Lateral Velocity 8.7 cm/s Mitral E to LV E' Lateral Ratio 13.7 LV E' Septal Velocity 5.5 cm/s Mitral E to LV E' Septal Ratio 21.8 TR Peak Velocity 316.9 cm/s TR Peak Gradient 40.2 mmHg Right Atrial Pressure 3.0 mmHg Pulmonary Artery Systolic Pressu 43.2 mmHg Right Ventricular Systolic Press 43.2 mmHg FINDINGS Left Ventricle Left ventricular wall thickness normal. Left ventricular cavity size normal. Mildly decreased left ventricular ejection fraction. Left ventricular ejection fraction is estimated at 45-50%. Global left ventricular hypokinesis. Right Ventricle Upper normal right ventricular size. Moderate pulmonary hypertension. Right Atrium Normal right atrial size. Left Atrium Normal left atrial size. Mitral Valve Mitral valve thickened. Mild mitral annular calcification. Moderately decreased mobility of the mitral valve leaflets. [id number] mitral regurgitation. Aortic Valve Trileaflet aortic valve. Diffuse thickening (sclerosis) of the aortic valve cusps without reduced excursion. Aortic valve sclerosis. No aortic regurgitation. Tricuspid Valve Structurally normal tricuspid valve. Mild tricuspid regurgitation. Pulmonic Valve Structurally normal pulmonic valve. Mild pulmonic regurgitation. Pericardium No pericardial effusion. Echo free space anterior to the right ventricle likely represents a fat pad. Aorta Normal size aortic root and proximal ascending aorta. CONCLUSIONS Mild LV dysfunction Mild to moderate mitral regurgitation Mild to moderate coronary hypertension Previewed by: Dr. Toan Gaston MD (Electronically Signed) Final Date: 30 July 2023 12:51
--- NOTE | 2023-07-30 13:55 | P.PN ---
Subjective HISTORY OF PRESENT ILLNESS: This is a 78-year-old female with a past medical history significant for hypertension and hyperlipidemia. Patient does not follow with a ballistician. We have been asked to see the patient in consultation for chest pain. Patient examined at the bedside. Patient states he started feeling short of breath with exertion back in May. He states that yesterday evening around 10 PM he began to have chest pain. He states the pain was in the middle of his chest and radiated into his back between his shoulder blades. He also reports feeling short of breath and states history he felt like he could not catch his breath. He denies any nausea or vomiting. He states that he went to lay down for a while and thought maybe the pain would go away. He states he continued to have pain intermittently throughout the night. This morning, his girlfriend was on his way over to pick him up for a doctor's appointment. He told her about his symptoms and she decided to bring him to the emergency room for further evaluation instead. At the time of examination, the patient reports minimal discomfort and is rating it 1/10. * EKG reveals sinus mechanism with nonspecific ST-T wave changes. Repeat EKG reveals biphasic T waves in inferior leads. * Chest xray negative for acute process * Laboratory data: WBC 4.2. Hemoglobin 14.1. Platelet count 136. Sodium 139. Potassium 4.7. BUN 30. Creatinine 1.09. Troponin 0.299. ProBNP 635. * Current home cardiac medications include simvastatin 20 mg daily and metoprolol succinate 50 mg daily 07/30/2023 Patient is status post cardiac catheterization with Dr. Gambino. Patient was found to have critical disease involving the proximal RCA. He underwent stenting of the RCA. The patient does still have some residual intermediate disease involving the mid to distal RCA. He also has intermediate to severe disease involving the mid LAD which needs to be followed closely on an outpatient basis. Patient denies any chest pain or pressure. He denies any shortness of breath. Vital signs are stable. Echocardiogram completed revealing ejection fraction 45-50%, mild to moderate mitral regurgitation, mild tricuspid regurgitation PHYSICAL EXAM: VITAL SIGNS: Reviewed. GENERAL: Well-developed in no acute distress. HEENT: Head is normocephalic. Pupils are equal, round. Sclerae anicteric. Mucous membranes of the mouth are moist. Neck supple. No JVD or thyromegaly LUNGS: Respirations even and unlabored. Lungs essentially clear to auscultation bilaterally. HEART: Regular rate and rhythm. S1 and S2 heard. ABDOMEN: Soft. Nondistended. Nontender. EXTREMITIES: Normal range of motion. No clubbing or cyanosis. Peripheral puls es intact. No lower extremity edema NEUROLOGIC: Awake and alert. Oriented x 3. ASSESSMENT: Non-STEMI, status post stenting of the proximal RCA Intermediate to severe disease involving mid LAD Hypertension Hyperlipidemia PLAN: Continue current cardiac medications Continue high-intensity statin and dual antiplatelet therapy Patient also has a 60-70% lesion of the mid LAD which will be addressed on an outpatient basis Continue to monitor patient for an additional 24 hours. Anticipate discharge home tomorrow if patient remains stable Further recommendations pending patient's course Nurse practitioner note has been reviewed by physician. Signing provider agrees with the documented findings, assessment, and plan of care. Objective - Vital Signs Vital signs: Vital Signs Temp 97.8 F 07/30/23 08:10 Pulse 58 L 07/30/23 08:10 Resp 17 07/30/23 08:10 BP 128/64 07/30/23 08:10 Pulse Ox 97 07/30/23 08:10 FiO2 21 07/30/23 08:01 Intake & Output 07/29/23 07/30/23 07/30/23 18:59 06:59 18:59 Intake Total 250 Balance 250 Weight 72.575 kg Intake: IV 250 Other: Voiding Method Toilet Toilet # Voids 1 - Labs CBC & Chem 7: 07/29/23 11:42 07/30/23 06:32 Labs: Abnormal Lab Results - Last 24 Hours (Table) 07/29/23 Range/Units 14:55 Troponin I 0.887 H* (0.000-0.034) ng/mL
[2023-07-30 14:03] VITALS: BMI 22.9
[2023-07-30 20:17] VITALS: TEMP 98.5
[2023-07-30] MEDS ORDERED: TAMSULOSIN 0.4 MG CAP.ER.24H PO SCH (21:00)
[2023-07-30] MEDS ORDERED: ATORVASTATIN 80 MG TAB PO SCH (21:00)
--- NOTE | 2023-07-31 08:56 | P.DS ---
Providers Date of admission: 07/29/23 12:48 Attending physician: Gus Rodríguez Consults: 07/29/23 12:48 Consult Physician Urgent Consulting Provider: Oliverio Gould Consult Reason/Comments: NSTEMI Do you want consulting provider notified?: Yes 07/29/23 17:11 Consult Physician Routine Consulting Provider: [facility] Consult Reason/Comments: Post Interventional patient Do you want consulting provider notified?: Already Contacted Primary care physician: Gus Rodríguez [facility] Course: The patient is a 78-year-old white male admitted for significant chest pain. The patient was found to have elevated troponin and ended up getting cardiac catheterization with PTCA of the right coronary artery. The patient did quite well. He is tolerating diet without any significant chest pain. He is t olerating medications and is hemodynamically stable. Once cleared by cardiology he will be discharged and follow-up with me in about 3-5 days. Patient Condition at Discharge: Stable Plan - Discharge Summary Discharge Rx Participant: No New Discharge Prescriptions: New Aspirin 81 mg PO DAILY #30 tab Atorvastatin [Lipitor] 80 mg PO HS #30 tab Clopidogrel [Plavix] 75 mg PO DAILY #30 tab Continue Metoprolol Succinate [Toprol XL] 50 mg PO DAILY Tamsulosin HCl [Flomax] 0.4 mg PO HS Discontinued Simvastatin [Zocor] 20 mg PO DAILY Discharge Medication List Metoprolol Succinate [Toprol XL] 50 mg PO DAILY 09/20/15 [History] Tamsulosin HCl [Flomax] 0.4 mg PO HS 07/29/23 [History] Aspirin 81 mg PO DAILY #30 tab 07/31/23 [Rx] Atorvastatin [Lipitor] 80 mg PO HS #30 tab 07/31/23 [Rx] Clopidogrel [Plavix] 75 mg PO DAILY #30 tab 07/31/23 [Rx] Follow up Appointment(s)/Referral(s): Gus Rodríguez MD [Primary Care Provider] - 3 Days Discharge Disposition: HOME SELF-CARE
[2023-07-31 09:22] VITALS: BP 138/70; PULSE 64; RESP 18
[2023-07-31] MEDS: CLOPIDOGREL 75 MG TAB PO SCH (09:23)
[2023-07-31] MEDS: ASPIRIN 81 MG PO SCH (09:23)
[2023-07-31] MEDS: METOPROLOL TARTRATE 25 MG TAB PO SCH (09:23)
--- NOTE | 2023-07-31 11:16 | P.PN ---
Subjective HISTORY OF PRESENT ILLNESS: This is a 78-year-old female with a past medical history significant for hypertension and hyperlipidemia. Patient does not follow with a computer networking instructor adjunct. We have been asked to see the patient in consultation for chest pain. Patient examined at the bedside. Patient states he started feeling short of breath with exertion back in May. He states that yesterday evening around 10 PM he began to have chest pain. He states the pain was in the middle of his chest and radiated into his back between his shoulder blades. He also reports feeling short of breath and states history he felt like he could not catch his breath. He denies any nausea or vomiting. He states that he went to lay down for a while and thought maybe the pain would go away. He states he continued to have pain intermittently throughout the night. This morning, his girlfriend was on his way over to pick him up for a doctor's appointment. He told her about his symptoms and she decided to bring him to the emergency room for further evaluation instead. At the time of examination, the patient reports minimal discomfort and is rating it 1/10. * EKG reveals sinus mechanism with nonspecific ST-T wave changes. Repeat EKG reveals biphasic T waves in inferior leads. * Chest xray negative for acute process * Laboratory data: WBC 4.2. Hemoglobin 14.1. Platelet count 136. Sodium 139. Potassium 4.7. BUN 30. Creatinine 1.09. Troponin 0.299. ProBNP 635. * Current home cardiac medications include simvastatin 20 mg daily and metoprolol succinate 50 mg daily 07/30/2023 Patient is status post cardiac catheterization with Dr. Gambino. Patient was found to have critical disease involving the proximal RCA. He underwent stenting of the RCA. The patient does still have some residual intermediate disease involving the mid to distal RCA. He also has intermediate to severe disease involving the mid LAD which needs to be followed closely on an outpatient basis. Patient denies any chest pain or pressure. He denies any shortness of breath. Vital signs are stable. Echocardiogram completed revealing ejection fraction 45-50%, mild to moderate mitral regurgitation, mild tricuspid regurgitation 07/31/2023 Patient examined this morning at the bedside. Patient denies chest pain or pressure. He denies shortness of breath. He has been up ambulating without difficulty. Vital signs are stable. PHYSICAL EXAM: VITAL SIGNS: Reviewed. GENERAL: Well-developed in no acute distress. HEENT: Head is normocephalic. Pupils are equal, round. Sclerae anicteric. Mucous membranes of the mouth are moist. Neck supple. No JVD or thyromegaly LUNGS: Respirations even and unlabored. Lungs essentially clear to auscultation bilaterally. HEART: Regular rate and rhythm. S1 and S2 heard. ABDOMEN: Soft. Nondistended. Nontender. EXTREMITIES: Normal range of motion. No clubbing or cyanosis. Peripheral pul ses intact. No lower extremity edema NEUROLOGIC: Awake and alert. Oriented x 3. ASSESSMENT: Non-STEMI, status post stenting of the proximal RCA Intermediate to severe disease involving mid LAD Hypertension Hyperlipidemia PLAN: Continue current cardiac medications Continue high-intensity statin and dual antiplatelet therapy Patient also has a 60-70% lesion of the mid LAD which will be addressed on an outpatient basis Patient is currently stable for discharge home today from a cardiac standpoint Patient is to follow up on an outpatient basis Nurse practitioner note has been reviewed by physician. Signing provider agrees with the documented findings, assessment, and plan of care. Objective - Vital Signs Vital signs: Vital Signs Temp 98.5 F 07/30/23 20:00 Pulse 64 07/31/23 08:00 Resp 18 07/31/23 08:00 BP 138/70 07/31/23 08:00 Pulse Ox 100 07/31/23 08:00 FiO2 21 07/30/23 08:01 Intake & Output 07/30/23 07/31/23 07/31/23 18:59 06:59 18:59 Intake Total 240 180 Balance 240 180 Weight 72.575 kg Intake: Oral 240 180 Other: Voiding Method Toilet Toilet # Voids 2 1 - Labs CBC & Chem 7: 07/29/23 11:42 07/30/23 06:32
== END 2023-07-31 10:36 | disposition home or self-care (01) | DRG 322 ==
LOC: EC 11:01 → 3SCARD 12:48
PROVIDERS: ADMIT Family Medicine; ATTEND Family Medicine
PROC: 027034Z Dilation of Coronary Artery, One Artery with Drug-eluting Intraluminal Device, Percutaneous Approach (ICD-10-PCS; principal; 2023-07-29 19:00)
PROC: 4A023N7 Measurement of Cardiac Sampling and Pressure, Left Heart, Percutaneous Approach (ICD-10-PCS; 2023-07-29 19:00)
PROC: B2111ZZ Fluoroscopy of Multiple Coronary Arteries using Low Osmolar Contrast (ICD-10-PCS; 2023-07-29 19:00)
DX: I21.4 Non-ST elevation (NSTEMI) myocardial infarction (principal); E78.5 Hyperlipidemia, unspecified; I10 Essential (primary) hypertension; I27.20 Pulmonary hypertension, unspecified; K21.9 Gastro-esophageal reflux disease without esophagitis; I08.1 Rheumatic disorders of both mitral and tricuspid valves; Z79.899 Other long term (current) drug therapy; Z85.828 Personal history of other malignant neoplasm of skin; Z87.891 Personal history of nicotine dependence
CPT/HCPCS: 36415; 71046; 80053; 80061; 82565; 83735; 83880; 84484; 85025; 85610; 85730; 92978; 93005; 93306; 93458; 94760; 96365; 96367; 99291

== ENCOUNTER 2024-07-09 02:03 | Observation (INO) | payer MEDICARE ==
[2024-07-09] MEDS: ASPIRIN 81 MG PO STA (02:35)
[2024-07-09] MEDS: MORPHINE SULFATE 4 MG/ML SYRINGE IV STA (02:35)
[2024-07-09] MEDS: SODIUM CHLORIDE 0.9% 500 ML 500 ML IV STA (02:36)
[2024-07-09 02:42] LABS: Basophils % (A) 0 %; Eosinophils # (A) 0.1 k/uL (0-0.7); Eosinophils % (A) 3 %; HCT 39.7 % (39.0-53.0); HGB 13.2 gm/dL (13.0-17.5); Lymphocytes # (A) 0.6 k/uL (1.0-4.8); Lymphocytes % (A) 15 %; MCH 31.7 pg (25.0-35.0); MCHC 33.2 g/dL (31.0-37.0); MCV 95.5 fL (80.0-100.0); Mean Platelet Volume 8.1; Monocytes # (A) 0.3 k/uL (0-1.0); Monocytes % (A) 6 %; Neutrophils % (A) 74 %; Platelet Count 143 k/uL (150-450); RBC 4.16 m/uL (4.30-5.90); RDW 13.9 % (11.5-15.5); WBC 4.1 k/uL (3.8-10.6)
[2024-07-09 02:46] LABS: Partial Thromboplastin Time 23.1 sec (22.0-30.0); Prothrombin Time 10.5 sec (10.0-12.5)
[2024-07-09 02:52] LABS: ALT 19 U/L (4-49); AST 26 U/L (17-59); African American GFR (CKD) 84 (>60 ml/min/1.73 sqM); Albumin 4.5 g/dL (3.5-5.0); Alkaline Phosphatase 58 U/L (38-126); Amylase 69 U/L (30-110); Blood Urea Nitrogen 30 mg/dL (9-20); Calcium 9.7 mg/dL (8.4-10.2); Carbon Dioxide 28 mmol/L (22-30); Chloride 100 mmol/L (98-107); Glucose 130 mg/dL (74-99); Lipase 140 U/L (23-300); Magnesium 1.8 mg/dL (1.6-2.3); Non-African American GFR(CKD) 72 (>60 ml/min/1.73 sqM); Total Protein 6.8 g/dL (6.3-8.2)
[2024-07-09 03:10] LABS: Anion Gap 12 mmol/L; Potassium 4.1 mmol/L (3.5-5.1); Sodium 140 mmol/L (137-145)
--- NOTE | 2024-07-09 03:14 | ED ---
Chest Pain HPI - General Chief Complaint: Chest Pain Stated Complaint: Chest Pain, Abdominal Pain Time Seen by Provider: 07/09/24 02:12 Source: patient Mode of arrival: ambulatory Limitations: no limitations - History of Present Illness Initial Comments: 79-year-old male presenting with chief complaint of abdominal and chest pain. Last night patient was having some periumbilical abdominal pain. It eventually went away but then later returned this evening. Since then he has also developed some dull left-sided abdominal pain that has some radiation into the chest. He has no difficulty breathing. No cough, congestion, sore throat, fever, chills, nausea, vomiting. No lower extremity swelling. No dizziness or weakness. - Related Data Home Medications Medication Instructions Recorded Confirmed Tamsulosin HCl [Flomax] 0.4 mg PO HS 07/29/23 07/09/24 Previous Rx's Medication Instructions Recorded Aspirin 81 mg PO DAILY #30 tab 07/31/23 Atorvastatin [Lipitor] 80 mg PO HS #30 tab 07/31/23 Clopidogrel [Plavix] 75 mg PO DAILY #30 tab 07/31/23 Allergies Allergy/AdvReac Type Severity Reaction Status Date / Time No Known Allergies Allergy Verified 07/09/24 07:53 Review of Systems ROS Statement: Those systems with pertinent positive or pertinent negative responses have been documented in the HPI. ROS Other: All systems not noted in ROS Statement are negative. Past Medical History Past Medical History: Cancer, GERD/Reflux, Hyperlipidemia, Hypertension, Osteoarthritis (OA) Additional Past Medical History / Comment(s): SKIN CANCER , TROUBLE SWALLOWING, ELEVATED LIVER ENZYMES-PREVIOUSLY WAS A HEAVY DRINKER", incontinent at night History of Any Multi-Drug Resistant Organisms: None Reported Past Surgical History: Hernia Repair, Orthopedic Surgery Additional Past Surgical History / Comment(s): RIGHT SHOULDER SURG, ING. HERNIA, COLONOSCOPY, CATARACT -BILATERAL EYES, EXCISION OF LESION, Past Anesthesia/Blood Transfusion Reactions: No Reported Reaction Past Psychological History: No Psychological Hx Reported Smoking Status: Former smoker Past Alcohol Use History: None Reported Past Drug Use History: None Reported - Past Family History Mother Family Medical History: Cancer Father Family Medical History: Cancer General Exam Limitations: no limitations General appearance: alert, in no apparent distress Head exam: Present: atraumatic, normocephalic Eye exam: Present: normal appearance, EOMI Neck exam: Present: normal inspection. Absent: meningismus Respiratory exam: Present: normal lung sounds bilaterally. Absent: respiratory distress, wheezes, rales, rhonchi, stridor Cardiovascular Exam: Present: regular rate, normal rhythm, normal heart sounds. Absent: systolic murmur, diastolic murmur, rubs, gallop, clicks GI/Abdominal exam: Present: soft, distended, tenderness. Absent: guarding, rebound, rigid Neurological exam: Present: alert, oriented X3 Psychiatric exam: Present: normal affect, normal mood Skin exam: Present: warm, dry Course Vital Signs 07/09/24 07/09/24 07/09/24 02:06 02:37 03:51 Temperature 98.0 F Pulse Rate 62 70 64 Respiratory 21 19 20 Rate Blood Pressure 131/46 127/71 156/79 O2 Sat by Pulse 100 97 95 Oximetry Chest Pain MDM - MDM Was pt. sent in by a medical professional or institution (, PA, DOUBLE NEEDLE OPERATOR LOCKSTITCH, urgent care, hospital, or fpc...) When possible be specific @ -No Did you speak to anyone other than the patient for history (EMS, parent, family, police, friend...)? What history was obtained from this source @ -No Did you review nursing and triage notes (agree or disagree)? Why? @ -I reviewed and agree with nursing and triage notes Were old charts reviewed (outside hosp., previous admission, EMS record, old EKG, old radiological studies, urgent care reports/EKG's, fpc records)? Report findings @ -No old charts were reviewed Differential Diagnosis (chest pain, altered mental status, abdominal pain women, abdominal pain men, vaginal bleeding, weakness, fever, dyspnea, syncope, headache, dizziness, GI bleed, back pain, seizure, CVA, palpatations, mental health, musculoskeletal)? @ -MDM Differential Abdominal Pain Men: Appendicitis, cholecystitis, diverticulosis, ischemic bowel, pancreatitis, hepatitis, UTI, gastroenteritis, AAA, incarcerated hernia, bowel obstruction, constipation, inflammatory bowel, hepatitis, peptic ulcer disease, splenic infarction, perforated viscus, testicular torsion... This is not meant to be an all-inclusive list EKG interpreted by me (3pts min.). @ -EKG shows sinus mechanism ventricular rate 55. QRS 113. QT 392. QTc 382. Left axis deviation. X-rays interpreted by me (1pt min.). @ -None done CT interpreted by me (1pt min.). @ -On preliminary reading of CT bladder is distended with some wall thickening. Gallbladder appears enlarged with cholelithiasis. Formal report reads urinary bladder is over distended reaching the level of L4. Bladder diverticula. Left ureterocele versus diverticulum in vesicoureteral junction region mild prostatomegaly protrudes into the bladder base. Please correlate with PSA level. Cholelithiasis. Small hiatal hernia. U/S interpreted by me (1pt. min.). @ -None done What testing was considered but not performed or refused? (CT, X-rays, U/S, labs)? Why? @ -None What meds were considered but not given or refused? Why? @ -None Did you discuss the management of the patient with other professionals (professionals i.e. , PA, DOUBLE NEEDLE OPERATOR LOCKSTITCH, lab, RT, psych nurse, social welfare clerk, recycle worker, teacher, special technical operations officer, director of casework services)? Give summary @ -I spoke with Dr. Rodríguez who accepts admission Was smoking cessation discussed for >3mins.? @ -No Was critical care preformed (if so, how long)? @ -No Were there social determinants of health that impacted care today? How? (Homelessness, low income, unemployed, alcoholism, drug addiction, transportation, low edu. Level, literacy, decrease access to med. care, group home, rehab)? @ -No Was there de-escalation of care discussed even if they declined (Discuss DNR or withdrawal of care, Hospice)? DNR status @ -No What co-morbidities impacted this encounter? (DM, HTN, Smoking, COPD, CAD, Cancer, CVA, ARF, Chemo, Hep., AIDS, mental health diagnosis, sleep apnea, morbid obesity)? @ -None Was patient admitted / discharged? Hospital course, mention meds given and route, prescriptions, significant lab abnormalities, going to OR and other pertinent info. @ -79-year-old male presenting chief complaint of abdominal pain and chest pain. History and physical examination are conducted. Lab work shows no leukocytosis or anemia. Negative troponin. CT was obtained and on preliminary reading it appears that the urinary bladder is severely distended. The gallbladder also appears enlarged with positive cholelithiasis. With these findings combined with the patient's chest pain he will be admitted to medicine with surgery on consult. Patient is agreeable with this plan. I discussed this case with my attending Dr. Landin Undiagnosed new problem with uncertain prognosis? @ -No Drug Therapy requiring intensive monitoring for toxicity (Heparin, Nitro, Insulin, Cardizem)? @ -No Were any procedures done? @ -No Diagnosis/symptom? @ -Chest pain, urinary retention, enlarged gallbladder, cholelithiasis Acute, or Chronic, or Acute on Chronic? @ -Acute Uncomplicated (without systemic symptoms) or Complicated (systemic symptoms)? @ -Complicated Side effects of treatment? @ -No Exacerbation, Progression, or Severe Exacerbation? @ -No Poses a threat to life or bodily function? How? (Chest pain, USA, CT, pneumonia, PE, COPD, DKA, ARF, appy, cholecystitis, CVA, Diverticulitis, Homicidal, Suicidal, threat to staff... and all critical care pts) @ -Yes Disposition Clinical Impression: Chest pain, Enlarged gallbladder, Cholelithiasis, Urinary retention Disposition: ADMITTED IP TO THIS HOSP Condition: Fair Time of Disposition: 04:28
[2024-07-09] MEDS ORDERED: NALOXONE 0.4 MG/ML 1 ML VIAL IV PRN (04:25)
[2024-07-09] MEDS: SODIUM CHLORIDE 0.9% 1,000 ML IV SCH (04:59)
[2024-07-09] MEDS: MORPHINE SULFATE 4 MG/ML SYRINGE IV PRN (04:59)
[2024-07-09] MEDS: metroNIDAZOLE-NS PMX 500 MG in SALINE 1 100ML.BAG IVPB STA (05:00)
[2024-07-09] MEDS: cefTRIAXone IN SWFI 1,000 MG/10 ML SYRINGE IVP STA (05:00)
--- NOTE | 2024-07-09 05:26 | CT ---
EXAM: CT Abdomen and Pelvis With Intravenous Contrast CLINICAL HISTORY: pt c/o ABD pain and chest pain. Pt stated he had ABD the other night, and it went away and it came back this evening. Pt stated the left side dull chest pain started sometime after the ABD pain but he was uncertain of the time. The ABD pain is in the umbilical area TECHNIQUE: Axial computed tomography images of the abdomen and pelvis with intravenous contrast. CTDI is 15.7 mGy and DLP is 794.3 mGy-cm. This CT exam was performed using one or more of the following dose reduction techniques: automated exposure control, adjustment of the mA and/or kV according to patient size, and/or use of iterative reconstruction technique. Coronal and sagittal reformatted images were created and reviewed. Similar images COMPARISON: No relevant prior studies available. FINDINGS: Lung bases: Unremarkable. No mass. No consolidation. Mediastinum: Small hiatal hernia. ABDOMEN: Liver: Unremarkable. No mass. Gallbladder and bile ducts: Several stones in the neck of the gallbladder. Largest measures about 6 mm. Pancreas: Unremarkable. No mass. No ductal dilation. Spleen: Unremarkable. No splenomegaly. Adrenals: Unremarkable. No mass. Kidneys and ureters: 12 mm exophytic right renal cyst. Stomach and bowel: Unremarkable. No obstruction. No mucosal thickening. PELVIS: Appendix: Bilateral hydrocele, larger on the right. The pleura normal appendix. Bladder: Urinary bladder is overdistended reaching the level of L4. Several bladder diverticula. Largest is anterior left measuring about 3. 3 cm. Left ureterocele versus diverticulum in the vesicoureteral junction region on series 201 image 77. Depression. Reproductive: Mild prostatomegaly, protrudes into the bladder base on series 201 image 83. ABDOMEN and PELVIS: Intraperitoneal space: Unremarkable. No free air. No significant fluid collection. Bones/joints: Mild degenerative changes. Soft tissues: There are small fat-containing left inguinal hernia.. Vasculature: Small amount of atherosclerotic calcifications. No abdominal aortic aneurysm. Lymph nodes: Unremarkable. No enlarged lymph nodes. IMPRESSION: 1. Urinary bladder is overdistended reaching the level of L4. Bladder diverticula. Left ureterocele versus diverticulum in vesicoureteral junction region. 2. Mild prostatomegaly, protrudes into the bladder base. Please correlate with PSA level. 3. Cholelithiasis. 4. Small hiatal hernia.
[2024-07-09 05:41] LABS: Appearance,Urine Clear (Clear); Bilirubin,Urine Negative (Negative); Blood,Urine Moderate (Negative); Color,Urine Light Yellow; Glucose,Urine (UA) 2+ (Negative); Ketones,Urine Negative (Negative); Leukocyte Esterase,Urine Negative (Negative); Mucus,Urine Rare /hpf; Nitrite,Urine Negative (Negative); Protein,Urine Negative (Negative); RBC,Urine 36 /hpf (0-5); Specific Gravity,Urine 1.018 (1.001-1.035); Urobilinogen,Urine <2.0 mg/dL (<2.0); WBC,Urine <1 /hpf (0-5)
[2024-07-09] MEDS ORDERED: CLOPIDOGREL 75 MG TAB PO SCH (09:00)
--- NOTE | 2024-07-09 09:12 | P.HPIM ---
History of Present Illness H&P Date: 07/09/24 This is a 79-year-old male who presented to the emergency department with complaints of abdominal and chest pain. Patient reports a day or so ago he was having some lower abdominal pain which went away but then returned yesterday. Patient denies any diet changes, reports he has not eaten any fatty foods recently. CT of abdomen and pelvis showed a distended bladder and cholelithiasis. Patient reports they had to straight cath him in the ER for him to be able to urinate. He is normally on Flomax at home. Patient seen this morning laying in bed. He reports abdominal discomfort continues. Dr. Riley has been consulted. Further medical history as noted below. Review of Systems Constitutional: Denies chills, Denies fever Cardiovascular: Reports chest pain, Denies dyspnea on exertion Respiratory: Denies cough, Denies dyspnea Gastrointestinal: Reports abdominal pain, Denies vomiting Musculoskeletal: Denies arm numbness/tingling, Denies leg numbness/tingling Neurological: Denies headaches, Denies weakness Past Medical History Past Medical History: Cancer, GERD/Reflux, Hyperlipidemia, Hypertension, Osteoarthritis (OA) Additional Past Medical History / Comment(s): SKIN CANCER , TROUBLE SWALLOWING, ELEVATED LIVER ENZYMES-PREVIOUSLY WAS A HEAVY DRINKER", incontinent at night History of Any Multi-Drug Resistant Organisms: None Reported Past Surgical History: Hernia Repair, Orthopedic Surgery Additional Past Surgical History / Comment(s): RIGHT SHOULDER SURG, ING. HERNIA, COLONOSCOPY, CATARACT -BILATERAL EYES, EXCISION OF LESION, Past Anesthesia/Blood Transfusion Reactions: No Reported Reaction Past Psychological History: No Psychological Hx Reported Smoking Status: Former smoker Past Alcohol Use History: None Reported Additional Past Alcohol Use History / Comment(s): QUIT ALCOHOL USE 2008 BEERS A DAY / STARTED SMOKING AT AGE 19 QUIT SMOKING AT AGE 37 SMOKED 1 PPD Past Drug Use History: None Reported - Past Family History Mother Family Medical History: Cancer Father Family Medical History: Cancer Medications and Allergies Home Medications Medication Instructions Recorded Confirmed Type Tamsulosin HCl [Flomax] 0.4 mg PO HS 07/29/23 07/09/24 History Aspirin 81 mg PO DAILY #30 tab 07/31/23 07/09/24 Rx Atorvastatin [Lipitor] 80 mg PO HS #30 tab 07/31/23 07/09/24 Rx Clopidogrel [Plavix] 75 mg PO DAILY #30 tab 07/31/23 07/09/24 Rx Allergies Allergy/AdvReac Type Severity Reaction Status Date / Time No Known Allergies Allergy Verified 07/09/24 07:53 Physical Exam Vitals: Vital Signs Temp Pulse Pulse Resp BP BP Pulse Ox 07/09/24 07:00 97.4 F L 64 17 128/60 94 L 07/09/24 05:42 98.3 F 60 17 151/72 100 07/09/24 05:32 98.4 F 59 L 21 156/76 96 07/09/24 03:51 64 20 156/79 95 07/09/24 02:37 70 19 127/71 97 07/09/24 02:06 98.0 F 62 21 131/46 100 Intake and Output 07/08/24 07/09/24 07/09/24 22:59 06:59 14:59 Output Total 950 Balance -950 Output: Urine 950 Straight 950 Other: Weight 74.843 kg - Constitutional General appearance: cooperative, no acute distress - EENT Eyes: PERRLA - Neck Neck: no lymphadenopathy, normal ROM, no rigidity - Respiratory Respiratory: bilateral: CTA - Cardiovascular Rhythm: regular Heart sounds: normal: S1, S2 - Gastrointestinal General gastrointestinal: soft, tenderness - Integumentary Integumentary: normal, normal turgor - Psychiatric Psychiatric: A&O x's 3, appropriate affect, intact judgment & insight Results CBC & Chem 7: 07/09/24 02:27 07/09/24 02:27 Labs: Abnormal Lab Results - Last 24 Hours (Table) 07/09/24 07/09/24 07/09/24 Range/Units 02:27 02:27 05:00 RBC 4.16 L (4.30-5.90) m/uL Plt Count 143 L (150-450) k/uL Lymphocytes # 0.6 L (1.0-4.8) k/uL BUN 30 H (9-20) mg/dL Glucose 130 H (74-99) mg/dL Urine Glucose (UA) 2+ H (Negative) Urine Blood Moderate H (Negative) Urine RBC 36 H (0-5) /hpf Urine Mucus Rare H (None) /hpf Thrombosis Risk Factor Assmnt - Choose All That Apply Any of the Below Risk Factors Present?: No Other Risk Factors: Yes Each Risk Factor Represents 3 Points: Age 75 years or older Other congenital or acquired thrombophilia - If yes, enter type in comment: No Thrombosis Risk Factor Assessment Total Risk Factor Score: 3 Thrombosis Risk Factor Assessment Level: Moderate Risk Assessment and Plan (1) Cholelithiasis Current Visit: Yes Status: Acute Code(s): K80.20 - CALCULUS OF GALLBLADDER W/O CHOLECYSTITIS W/O OBSTRUCTION SNOMED Code(s): 937558075 (2) Urinary retention Current Visit: Yes Status: Acute Code(s): R33.9 - RETENTION OF URINE, UNSPECIFIED SNOMED Code(s): 381617404 (3) Hyperlipidemia Current Visit: No Status: Acute Code(s): E78.5 - HYPERLIPIDEMIA, UNSPECIFIED SNOMED Code(s): 77072278 (4) Hypertension Current Visit: No Status: Acute Code(s): I10 - ESSENTIAL (PRIMARY) HYPERTENSION SNOMED Code(s): 17538059 Plan: Continue home medications. Will increase Flomax dose. Hold Plavix until seen by surgeon. Await recommendations from Dr. Riley. Patient seen and evaluated by nurse practitioner, physician in agreement with plan
[2024-07-09] MEDS: ASPIRIN 81 MG PO SCH (10:22)
[2024-07-09] MEDS: TAMSULOSIN 0.4 MG CAP.ER.24H PO SCH (10:25)
--- NOTE | 2024-07-09 10:36 | P.CRDCN ---
History of Present Illness History of present illness: HISTORY OF PRESENT ILLNESS: This is a 79-year-old male with a past medical history significant for hypertension, hyperlipidemia, valvular heart disease, mild cardiomyopathy, and coronary artery disease. Patient follows in the office with Dr. No. We have been asked to see the patient in consultation for cardiac risk assessment. Patient examined at the bedside. patient presented to the hospital yesterday with a chief complaint of abdominal pain. Patient states he has been having some abdominal discomfort for the past couple days. He denies any nausea, vomiting, or diarrhea. At the time of examination he denies any chest pain or pressure. He denies any shortness of breath. He denies any abdominal pain. * EKG reveals sinus mechanism with no signs of acute ischemia * CT abdomen and pelvis: Urinary bladder is over distend reaching level of L4. Bladder diverticula. Mild prostatomegaly. Cholelithiasis. Small hiatal hernia. * Laboratory data: W BC 4.1. Hemoglobin 13.2. platelet count 143. Sodium 140. Potassium 4.1. BUN 30. Creatinine 1.0. Magnesium 1.8.troponin negative 2. * Current home cardiac medications include aspirin 81 mg daily, Plavix 75 mg daily, and Lipitor 80 mg at night * Most recent echocardiogram obtained in July 2023 revealed ejection fraction 45-50%, mild to moderate MR * Cardiac catheterization history: July 2023 revealing critical RCA disease, intermediate to severe disease in the LAD. Patient underwent PCI of RCA. REVIEW OF SYSTEMS: At the time of my exam: CONSTITUTIONAL: Denies fever or chills. HEENT: Denies blurred vision, vision changes, or eye pain. Denies hemoptysis CARDIOVASCULAR: Denies chest pain. Denies orthopnea. Denies PND. Denies palpitations RESPIRATORY: Denies shortness of breath. GASTROINTESTINAL: Denies abdominal pain. Denies nausea or vomiting. HEMATOLOGIC: Denies bleeding disorders. GENITOURINARY: Denies any blood in urine. SKIN: Denies pruitis. Denies rash. PHYSICAL EXAM: VITAL SIGNS: Reviewed. GENERAL: Well-developed in no acute distress. HEENT: Head is normocephalic. Pupils are equal, round. Sclerae anicteric. Mucous membranes of the mouth are moist. Neck supple. No JVD or thyromegaly LUNGS: Respirations even and unlabored. Lungs essentially clear to auscultation bilaterally. HEART: Regular rate and rhythm. S1 and S2 heard. ABDOMEN: Soft. Nondistended. Nontender. EXTREMITIES: Normal range of motion. No clubbing or cyanosis. Peripheral pulses intact. No lower extremity edema NEUROLOGIC: Awake and alert. Oriented x 3. ASSESSMENT: Abdominal pain Cholelithiasis Urinary retention Coronary artery disease with previous stenting of the RCA, July 2023 Known intermediate disease involving the LAD Hypertension Hyperlipidemia Mild ischemic cardiomyopathy, 45% Valvular heart disease with mild to moderate MR Former nicotine dependence PLAN: Obtain 2-D echo to assess cardiac structure and function Resume home cardiac medications May hold Plavix No absolute contraindications for patient to proceed with surgical intervention if deemed necessary by general surgery Further recommendations pending patient's course Nurse practitioner note has been reviewed by physician. Signing provider agrees with the documented findings, assessment, and plan of care. Past Medical History Past Medical History: Cancer, GERD/Reflux, Hyperlipidemia, Hypertension, Osteoarthritis (OA) Additional Past Medical History / Comment(s): SKIN CANCER , TROUBLE SWALLOWING, ELEVATED LIVER ENZYMES-PREVIOUSLY WAS A HEAVY DRINKER", incontinent at night History of Any Multi-Drug Resistant Organisms: None Reported Past Surgical History: Hernia Repair, Orthopedic Surgery Additional Past Surgical History / Comment(s): RIGHT SHOULDER SURG, ING. HERNIA, COLONOSCOPY, CATARACT -BILATERAL EYES, EXCISION OF LESION, Past Anesthesia/Blood Transfusion Reactions: No Reported Reaction Past Psychological History: No Psychological Hx Reported Smoking Status: Former smoker Past Alcohol Use History: None Reported Additional Past Alcohol Use History / Comment(s): QUIT ALCOHOL USE 2008 BEERS A DAY / STARTED SMOKING AT AGE 19 QUIT SMOKING AT AGE 37 SMOKED 1 PPD Past Drug Use History: None Reported - Past Family History Mother Family Medical History: Cancer Father Family Medical History: Cancer Medications and Allergies Home Medications Medication Instructions Recorded Confirmed Type Tamsulosin HCl [Flomax] 0.4 mg PO HS 07/29/23 07/09/24 History Aspirin 81 mg PO DAILY #30 tab 07/31/23 07/09/24 Rx Atorvastatin [Lipitor] 80 mg PO HS #30 tab 07/31/23 07/09/24 Rx Clopidogrel [Plavix] 75 mg PO DAILY #30 tab 07/31/23 07/09/24 Rx Allergies Allergy/AdvReac Type Severity Reaction Status Date / Time No Known Allergies Allergy Verified 07/09/24 07:53 Physical Exam Vitals: Vital Signs Temp Pulse Pulse Resp BP BP Pulse Ox 07/09/24 07:00 97.4 F L 64 17 128/60 94 L 07/09/24 05:42 98.3 F 60 17 151/72 100 07/09/24 05:32 98.4 F 59 L 21 156/76 96 07/09/24 03:51 64 20 156/79 95 07/09/24 02:37 70 19 127/71 97 07/09/24 02:06 98.0 F 62 21 131/46 100 Intake and Output 07/08/24 07/09/24 07/09/24 22:59 06:59 14:59 Output Total 950 Balance -950 Output: Urine 950 Straight 950 Other: Weight 74.843 kg Results 07/09/24 02:27 07/09/24 02:27 Cardiac Enzymes 07/09/24 07/09/24 07/09/24 Range/Units 02:27 02:27 07:01 AST 26 (17-59) U/L Troponin I <0.012 <0.012 (0.000-0.034) ng/mL Coagulation 07/09/24 Range/Units 02:27 PT 10.5 (10.0-12.5) sec APTT 23.1 (22.0-30.0) sec CBC 07/09/24 Range/Units 02:27 WBC 4.1 (3.8-10.6) k/uL RBC 4.16 L (4.30-5.90) m/uL Hgb 13.2 (13.0-17.5) gm/dL Hct 39.7 (39.0-53.0) % Plt Count 143 L (150-450) k/uL Comprehensive Metabolic Panel 07/09/24 Range/Units 02:27 Sodium 140 (137-145) mmol/L Potassium 4.1 (3.5-5.1) mmol/L Chloride 100 (98-107) mmol/L Carbon Dioxide 28 (22-30) mmol/L BUN 30 H (9-20) mg/dL Creatinine 1.00 (0.66-1.25) mg/dL Glucose 130 H (74-99) mg/dL Calcium 9.7 (8.4-10.2) mg/dL AST 26 (17-59) U/L ALT 19 (4-49) U/L Alkaline Phosphatase 58 (38-126) U/L Total Protein 6.8 (6.3-8.2) g/dL Albumin 4.5 (3.5-5.0) g/dL Current Medications Generic Name Dose Route Start Last Admin Trade Name Freq PRN Reason Stop Dose Admin Aspirin 81 mg 07/09/24 09:00 07/09/24 10:22 Aspirin 81 Mg PO Not Given DAILY [facility] Atorvastatin Calcium 80 mg 07/09/24 21:00 Atorvastatin 80 Mg Tab PO HS [facility] Sodium Chloride 1,000 mls @ 75 mls/hr 07/09/24 04:30 07/09/24 04:59 Saline 0.9% IV 75 mls/hr .[id number] CE Administration Ketorolac Tromethamine 15 mg 07/09/24 04:25 Ketorolac 15 Mg/Ml 1 Ml Vial IVP 07/12/24 04:27 Q6HR PRN Moderate Pain (Scale 4 to 6) Morphine Sulfate 4 mg 07/09/24 04:25 07/09/24 04:59 Morphine Sulfate 4 Mg/Ml Syringe IV 4 mg Q4HR PRN Administration Severe Pain (Scale 7 to 10) Naloxone HCl 0.2 mg 07/09/24 04:25 Naloxone 0.4 Mg/Ml 1 Ml Vial IV Q2M PRN Opioid Reversal Tamsulosin HCl 0.8 mg 07/09/24 08:45 07/09/24 10:25 Tamsulosin 0.4 Mg Cap.Er.24h PO 0.8 mg [id number] CE Administration Intake and Output 07/08/24 07/09/24 07/09/24 22:59 06:59 14:59 Output Total 950 Balance -950 Output: Urine 950 Straight 950 Other: Weight 74.843 kg 07/09/24 02:27 07/09/24 02:27
--- NOTE | 2024-07-09 14:35 | P.GSCN ---
History of Present Illness Consult date: 07/09/24 History of present illness: CHIEF COMPLAINT: Abdominal pain HISTORY OF PRESENT ILLNESS: This is a 79-year-old male who presented the hospital with complaints of abdominal pain. Patient initially had lower abdominal pain and difficulty with urinating. He also reported epigastric and right upper quadrant pain that started last night around 8 PM after he had eaten ice cream. Patient also reports having cottage cheese and cheese with toast at dinner. Patient has been very nauseous felt like he was going to vomit. Patient did report that the pain had gone into the chest. He reports he had similar pain when he had his heart attack 6 months ago. He had a stent placed at that time and is on Plavix. Last dose of Plavix was yesterday. He had a CT scan of the neck which revealed several gallstones in the neck of the gallbladder. Patient did have urinary retention and distended bladder was noted on CAT scan as well. They straight cath him and he had relief of the lower abdominal pain. But the epigastric and right upper quadrant pain continued. PAST MEDICAL HISTORY: GERD/Reflux, Hyperlipidemia, Hypertension, Osteoarthritis (OA) PAST SURGICAL HISTORY: Hernia repair MEDICATIONS: See below ALLERGIES: See below SOCIAL HISTORY: No illicit drug use. Prior history of heavy alcohol use. Patient reports last alcoholic drink 16 years ago. He has a history of smoking. REVIEW OF SYSTEMS: CONSTITUTIONAL: Denies fever or chills. HEENT: Denies blurred vision, vision changes, or eye pain. Denies hemoptysis CARDIOVASCULAR: Denies chest pain or pressure. RESPIRATORY: No shortness of breath. GASTROINTESTINAL: See HPI for pertinent findings HEMATOLOGIC: Denies bleeding disorders. GENITOURINARY: Denies any blood in urine or increased urinary frequency. SKIN: Denies pruitis. Denies rash. PHYSICAL EXAM: VITAL SIGNS: Reviewed GENERAL: Well-developed in no acute distress. HEENT: No sclera icterus. Extraocular movements grossly intact. Moist buccal mucosa. Head is atraumatic, normocephalic. No nasal drainage. ABDOMEN: Soft. Nondistended. Mild tenderness in the right upper quadrant and epigastric area NEUROLOGIC: Alert and oriented. Cranial nerves II through XII grossly intact. LABORATORY DATA: WBC 4.1 Hgb 13.2 platelets 143 LFTs normal lipase 140 Troponins negative x 3 sodium 140 potassium 4.1 creatinine 1.0 IMAGING: CT scan abdomen pelvis reported urinary bladder is over distended. Mild prostamegaly. Cholelithiasis. Small hiatal hernia. Several gallstones in the neck of the gallbladder. Largest measuring 6 mm. ASSESSMENT: 1. Acute cholecystitis with several stones in the neck of the gallbladder 2. Prior history of MA with cardiac stent paced 6 months ago. 3. Urinary retention requiring to be straight cath PLAN: -Patient scheduled for laparoscopic cholecystectomy tomorrow with Dr. Fernandez -Okay for clear liquid diet today -N.p.o. after midnight -Continue antibiotics -Patient seen and evaluated by cardiology. They reported no contraindication to proceed with surgery -Hold Plavix Physician Bar Catcher note has been reviewed by physician. Signing provider agrees with the documented findings, assessment, and plan of care. Past Medical History Past Medical History: Cancer, GERD/Reflux, Hyperlipidemia, Hypertension, Osteoarthritis (OA) Additional Past Medical History / Comment(s): SKIN CANCER , TROUBLE SWALLOWING, ELEVATED LIVER ENZYMES-PREVIOUSLY WAS A HEAVY DRINKER", incontinent at night History of Any Multi-Drug Resistant Organisms: None Reported Past Surgical History: Hernia Repair, Orthopedic Surgery Additional Past Surgical History / Comment(s): RIGHT SHOULDER SURG, ING. HERNIA, COLONOSCOPY, CATARACT -BILATERAL EYES, EXCISION OF LESION, Past Anesthesia/Blood Transfusion Reactions: No Reported Reaction Past Psychological History: No Psychological Hx Reported Smoking Status: Former smoker Past Alcohol Use History: None Reported Additional Past Alcohol Use History / Comment(s): QUIT ALCOHOL USE 2008 BEERS A DAY / STARTED SMOKING AT AGE 19 QUIT SMOKING AT AGE 37 SMOKED 1 PPD Past Drug Use History: None Reported - Past Family History Mother Family Medical History: Cancer Father Family Medical History: Cancer Medications and Allergies Home Medications Medication Instructions Recorded Confirmed Type Tamsulosin HCl [Flomax] 0.4 mg PO HS 07/29/23 07/09/24 History Aspirin 81 mg PO DAILY #30 tab 07/31/23 07/09/24 Rx Atorvastatin [Lipitor] 80 mg PO HS #30 tab 07/31/23 07/09/24 Rx Clopidogrel [Plavix] 75 mg PO DAILY #30 tab 07/31/23 07/09/24 Rx Allergies Allergy/AdvReac Type Severity Reaction Status Date / Time No Known Allergies Allergy Verified 07/09/24 07:53 Surgical - Exam Vital Signs Temp Pulse Resp BP Pulse Ox 98.0 F 62 21 131/46 100 07/09/24 02:06 07/09/24 02:06 07/09/24 02:06 07/09/24 02:06 07/09/24 02:06 Results - Labs 07/09/24 02:27 07/09/24 02:27 Abnormal Lab Results - Last 24 Hours (Table) 07/09/24 07/09/24 07/09/24 Range/Units 02:27 02:27 05:00 RBC 4.16 L (4.30-5.90) m/uL Plt Count 143 L (150-450) k/uL Lymphocytes # 0.6 L (1.0-4.8) k/uL BUN 30 H (9-20) mg/dL Glucose 130 H (74-99) mg/dL Urine Glucose (UA) 2+ H (Negative) Urine Blood Moderate H (Negative) Urine RBC 36 H (0-5) /hpf Urine Mucus Rare H (None) /hpf Diabetes panel 07/09/24 Range/Units 02:27 Sodium 140 (137-145) mmol/L Potassium 4.1 (3.5-5.1) mmol/L Chloride 100 (98-107) mmol/L Carbon Dioxide 28 (22-30) mmol/L BUN 30 H (9-20) mg/dL Creatinine 1.00 (0.66-1.25) mg/dL Glucose 130 H (74-99) mg/dL Calcium 9.7 (8.4-10.2) mg/dL AST 26 (17-59) U/L ALT 19 (4-49) U/L Alkaline Phosphatase 58 (38-126) U/L Total Protein 6.8 (6.3-8.2) g/dL Albumin 4.5 (3.5-5.0) g/dL Calcium panel 07/09/24 Range/Units 02:27 Calcium 9.7 (8.4-10.2) mg/dL Albumin 4.5 (3.5-5.0) g/dL Pituitary panel 07/09/24 Range/Units 02:27 Sodium 140 (137-145) mmol/L Potassium 4.1 (3.5-5.1) mmol/L Chloride 100 (98-107) mmol/L Carbon Dioxide 28 (22-30) mmol/L BUN 30 H (9-20) mg/dL Creatinine 1.00 (0.66-1.25) mg/dL Glucose 130 H (74-99) mg/dL Calcium 9.7 (8.4-10.2) mg/dL Adrenal panel 07/09/24 Range/Units 02:27 Sodium 140 (137-145) mmol/L Potassium 4.1 (3.5-5.1) mmol/L Chloride 100 (98-107) mmol/L Carbon Dioxide 28 (22-30) mmol/L BUN 30 H (9-20) mg/dL Creatinine 1.00 (0.66-1.25) mg/dL Glucose 130 H (74-99) mg/dL Calcium 9.7 (8.4-10.2) mg/dL Total Bilirubin 1.0 (0.2-1.3) mg/dL AST 26 (17-59) U/L ALT 19 (4-49) U/L Alkaline Phosphatase 58 (38-126) U/L Total Protein 6.8 (6.3-8.2) g/dL Albumin 4.5 (3.5-5.0) g/dL
[2024-07-09] MEDS: PIPERACILLIN-TAZOBACTAM 3.375 GM in SODIUM CHLORIDE 0.9% 100 ML IVPB SCH (16:12)
--- NOTE | 2024-07-09 17:29 | CA ---
Transthoracic Echo Report Name: Mauricio Rincon Age: 79 Gender: M : 1945 Exam Date: 07/09/2024 14:59 Exam Location: [place] Echo Ht (in): 71 Wt (lb): 165 Ordering Physician: Marlena Prather Attending/Referring Phys: [id number], Yamilka [employer] Research Engineer Cristal Fall, SHANT Procedure CPT: Indications: LV function Cardiac Hx: Technical Quality: Good Contrast 1: Total Dose (mL): Contrast 2: Total Dose (mL): MEASUREMENTS (Male / Female) Normal Values 2D ECHO LV Diastolic Diameter PLAX 4.1 cm 4.2 - 5.9 / 3.9 - 5.3 cm LV Systolic Diameter PLAX 3.7 cm IVS Diastolic Thickness 1.3 cm 0.6 - 1.0 / 0.6 - 0.9 cm LVPW Diastolic Thickness 1.3 cm 0.6 - 1.0 / 0.6 - 0.9 cm LV Relative Wall Thickness 0.6 RV Internal Dim ED PLAX 3.5 cm LA Systolic Diameter LX 4.0 cm 3.0 - 4.0 / 2.7 - 3.8 cm LA Volume 58.1 cm??? 18 - 58 / 22 - 52 cm??? LA Volume Index 30.0 cm???/m??? 16 - 28 cm???/m??? M-MODE Aortic Root Diameter MM 3.1 cm AV Cusp Separation MM 2.0 cm DOPPLER AV Peak Velocity 150.1 cm/s AV Peak Gradient 9.0 mmHg MV Area PHT 2.5 cm??? Mitral E Point Velocity 101.5 cm/s Mitral A Point Velocity 140.3 cm/s Mitral E to A Ratio 0.7 MV Deceleration Time 302.8 ms TR Peak Velocity 250.1 cm/s TR Peak Gradient 25.0 mmHg Right Ventricular Systolic Press 29.6 mmHg FINDINGS Left Ventricle Left ventricular ejection fraction is estimated at 55-60 %. Mildly increased septal wall thickness. Left ventricular cavity size normal. No obvious regional wall motion abnormalities. Right Ventricle Mild right ventricular dilatation. Right ventricular systolic pressure within normal limits. Right Atrium Normal right atrial size. No right atrial thrombus or mass seen. Left Atrium Mildly increased left atrial volume. No left atrial thrombus or mass present. Mitral Valve Mitral valve thickened. Mitral annular calcification. Trace to mild mitral regurgitation. Aortic Valve Trileaflet aortic valve. Thickened aortic valve without stenosis. Tricuspid Valve Structurally normal tricuspid valve. Mild tricuspid regurgitation. Pulmonic Valve Structurally normal pulmonic valve. No pulmonic regurgitation. Pericardium No pericardial or pleural effusion. Aorta Normal size aortic root and proximal ascending aorta. CONCLUSIONS Good LVF 55-60 % . Mild RV enlarement. Mid MR and TR Previewed by: Dr. Toan Gaston MD (Electronically Signed) Final Date: 09 July 2024 17:28
[2024-07-09] MEDS: ATORVASTATIN 80 MG TAB PO SCH (20:03)
[2024-07-09] MEDS: KETOROLAC 15 MG/ML 1 ML VIAL IVP PRN (20:03)
[2024-07-10 03:18] LABS: African American GFR (CKD) 82 (>60 ml/min/1.73 sqM); Anion Gap 6 mmol/L; Blood Urea Nitrogen 27 mg/dL (9-20); Calcium 7.6 mg/dL (8.4-10.2); Carbon Dioxide 22 mmol/L (22-30); Chloride 110 mmol/L (98-107); Glucose 99 mg/dL (74-99); Non-African American GFR(CKD) 71 (>60 ml/min/1.73 sqM); Potassium 3.5 mmol/L (3.5-5.1); Sodium 138 mmol/L (137-145)
[2024-07-10 04:12] LABS: HCT 29.9 % (39.0-53.0); Hypochromasia Slight; MCH 32.4 pg (25.0-35.0); MCHC 33.1 g/dL (31.0-37.0); MCV 97.9 fL (80.0-100.0); Mean Platelet Volume 7.9; RBC 3.06 m/uL (4.30-5.90); RDW 13.7 % (11.5-15.5); WBC 3.5 k/uL (3.8-10.6)
[2024-07-10 04:15] LABS: HGB 9.9 gm/dL (13.0-17.5)
[2024-07-10 04:29] LABS: Platelet Count 83 k/uL (150-450)
--- NOTE | 2024-07-10 08:28 | P.PN ---
Subjective Progress Note Date: 07/10/24 Principal diagnosis: Cholecystitis The patient is a 79-year-old white male with known history of coronary artery disease with myocardial infarction and stent who last night had significant hematuria. Urology has been consulted. No significant new complaints. No nausea or vomiting. He is scheduled for cholecystectomy by Dr. Fernandez. Appreciate input. The patient seems comfortable today with no significant plaint of chest pain. Objective - Vital Signs Vital signs: Vital Signs Temp 97.8 F 07/10/24 02:00 Pulse 71 07/10/24 02:00 Resp 15 07/10/24 02:00 BP 112/63 07/10/24 02:00 Pulse Ox 94 L 07/10/24 02:00 FiO2 Intake & Output 07/09/24 07/10/24 07/10/24 18:59 06:59 18:59 Output Total 1848 750 Balance -1848 -750 Output: Urine 1000 750 Post Void Residual 848 Other: # Bowel Movements 1 - Constitutional General appearance: Present: average body habitus - EENT Eyes: Absent: abnormal pupil - Neck Neck: Absent: lymphadenopathy - Respiratory Respiratory: bilateral: diminished - Cardiovascular Rhythm: regular Heart sounds: normal: S1, S2 Abnormal Heart Sounds: Absent: S3 Gallop - Gastrointestinal General gastrointestinal: Present: soft Localized gastrointestinal: tender: midline - Labs CBC & Chem 7: 07/10/24 02:50 07/10/24 02:50 Labs: Abnormal Lab Results - Last 24 Hours (Table) 07/10/24 07/10/24 Range/Units 02:50 02:50 WBC 3.5 L (3.8-10.6) k/uL RBC 3.06 L (4.30-5.90) m/uL Hgb 9.9 L D (13.0-17.5) gm/dL Hct 29.9 L (39.0-53.0) % Plt Count 83 L (150-450) k/uL Chloride 110 H (98-107) mmol/L BUN 27 H (9-20) mg/dL Calcium 7.6 L (8.4-10.2) mg/dL Assessment and Plan (1) Cholecystitis Current Visit: Yes Status: Acute Code(s): K81.9 - CHOLECYSTITIS, UNSPECIFIED SNOMED Code(s): 60214635 (2) Hematuria Current Visit: Yes Status: Acute Code(s): R31.9 - HEMATURIA, UNSPECIFIED SNOMED Code(s): 55189353 (3) Hyperlipidemia Current Visit: No Status: Acute Code(s): E78.5 - HYPERLIPIDEMIA, UNSPECIFIED SNOMED Code(s): 93669916 (4) Hypertension Current Visit: No Status: Acute Code(s): I10 - ESSENTIAL (PRIMARY) HY PERTENSION SNOMED Code(s): 21735212 Plan: Will continue to follow. Appreciate multiple consultants input. Check CBC and CMP in a.m.
[2024-07-10] MEDS: IV FLUID CONTINUATION 1,000 ML IV ONE (09:50)
--- NOTE | 2024-07-10 09:52 | P.PN ---
Subjective HISTORY OF PRESENT ILLNESS: This is a 79-year-old male with a past medical history significant for hypertension, hyperlipidemia, valvular heart disease, mild cardiomyopathy, and coronary artery disease. Patient follows in the office with Dr. No. We have been asked to see the patient in consultation for cardiac risk assessment. Patient examined at the bedside. patient presented to the hospital yesterday with a chief complaint of abdominal pain. Patient states he has been having some abdominal discomfort for the past couple days. He denies any nausea, vomiting, or diarrhea. At the time of examination he denies any chest pain or pressure. He denies any shortness of breath. He denies any abdominal pain. * EKG reveals sinus mechanism with no signs of acute ischemia * CT abdomen and pelvis: Urinary bladder is over distend reaching level of L4. Bladder diverticula. Mild prostatomegaly. Cholelithiasis. Small hiatal hernia. * Laboratory data: W BC 4.1. Hemoglobin 13.2. platelet count 143. Sodium 140. Potassium 4.1. BUN 30. Creatinine 1.0. Magnesium 1.8.troponin negative 2. * Current home cardiac medications include aspirin 81 mg daily, Plavix 75 mg daily, and Lipitor 80 mg at night * Most recent echocardiogram obtained in July 2023 revealed ejection fraction 45-50%, mild to moderate MR * Cardiac catheterization history: July 2023 revealing critical RCA disease, intermediate to severe disease in the LAD. Patient underwent PCI of RCA. 07/10/2024 Patient examined this morning at the bedside. Patient denies chest pain or pressure. He denies shortness of breath. He denies any abdominal pain. Denies nausea or vomiting. Patient continued to have issues with urinary retention last night and required Johnston catheter placement. Per nursing, patient had a significant amount of hematuria. Hemoglobin dropped from 13.2-9.9. Echocardiogram completed revealing ejection fraction 55 to 60%, trace to mild MR, mild TR PHYSICAL EXAM: VITAL SIGNS: Reviewed. GENERAL: Well-developed in no acute distress. HEENT: Head is normocephalic. Pupils are equal, round. Sclerae anicteric. Mucous membranes of the mouth are moist. Neck supple. No JVD or thyromegaly LUNGS: Respirations even and unlabored. Lungs essentially clear to auscultation bilaterally. HEART: Regular rate and rhythm. S1 and S2 heard. ABDOMEN: Soft. Nondistended. Nontender. EXTREMITIES: Normal range of motion. No clubbing or cyanosis. Peripheral pulses intact. No lower extremity edema NEUROLOGIC: Awake and alert. Oriented x 3. ASSESSMENT: Abdominal pain Cholelithiasis Urinary retention Hematuria with acute blood loss anemia Coronary artery disease with previous stenting of the RCA, July 2023 Known intermediate disease involving the LAD Hypertension Hyperlipidemia Mild ischemic cardiomyopathy, 45% Valvular heart disease with mild to moderate MR Former nicotine dependence PLAN: Continue current cardiac medications May hold Plavix. Continue aspirin 81 mg daily. No absolute contraindications for patient to proceed with surgical intervention if deemed necessary by general surgery Further recommendations pending patient's course Nurse practitioner note has been reviewed by physician. Signing provider agrees with the documented findings, assessment, and plan of care. Objective - Vital Signs Vital signs: Vital Signs Temp 97.8 F 07/10/24 02:00 Pulse 71 07/10/24 02:00 Resp 15 07/10/24 02:00 BP 112/63 07/10/24 02:00 Pulse Ox 94 L 07/10/24 02:00 FiO2 Intake & Output 07/09/24 07/10/24 07/10/24 18:59 06:59 18:59 Output Total 1848 750 Balance -1848 -750 Output: Urine 1000 750 Post Void Residual 848 Other: # Bowel Movements 1 - Labs CBC & Chem 7: 07/10/24 02:50 07/10/24 02:50 Labs: Abnormal Lab Results - Last 24 Hours (Table) 07/10/24 07/10/24 Range/Units 02:50 02:50 WBC 3.5 L (3.8-10.6) k/uL RBC 3.06 L (4.30-5.90) m/uL Hgb 9.9 L D (13.0-17.5) gm/dL Hct 29.9 L (39.0-53.0) % Plt Count 83 L (150-450) k/uL Chloride 110 H (98-107) mmol/L BUN 27 H (9-20) mg/dL Calcium 7.6 L (8.4-10.2) mg/dL Microbiology - Last 24 Hours (Table) 07/09/24 05:00 Urine Culture - Final Urine,Catheterized
[2024-07-10 10:19] LABS: Basophils % (A) 0 %; Eosinophils # (A) 0.1 k/uL (0-0.7); Eosinophils % (A) 2 %; HCT 34.7 % (39.0-53.0); Hypochromasia Slight; Lymphocytes # (A) 0.5 k/uL (1.0-4.8); Lymphocytes % (A) 12 %; MCH 31.2 pg (25.0-35.0); MCHC 31.8 g/dL (31.0-37.0); MCV 98.1 fL (80.0-100.0); Mean Platelet Volume 7.9; Monocytes # (A) 0.4 k/uL (0-1.0); Monocytes % (A) 9 %; Neutrophils % (A) 75 %; Platelet Count 110 k/uL (150-450); RBC 3.54 m/uL (4.30-5.90); RDW 13.7 % (11.5-15.5)
[2024-07-10] MEDS: DEXAMETHASONE SOD PHOSPHATE 4 MG/ML 1 ML VIAL IVP STA (10:28)
[2024-07-10] MEDS: ONDANSETRON 4 MG/2 ML VIAL IVP STA (10:29)
[2024-07-10 10:31] LABS: ALT 14 U/L (4-49); AST 19 U/L (17-59); African American GFR (CKD) 65 (>60 ml/min/1.73 sqM); Albumin/Globulin Ratio 1.4; Alkaline Phosphatase 39 U/L (38-126); Anion Gap 7 mmol/L; Blood Urea Nitrogen 27 mg/dL (9-20); Calcium 8.6 mg/dL (8.4-10.2); Carbon Dioxide 26 mmol/L (22-30); Chloride 104 mmol/L (98-107); Globulin 2.1 g/dL; Glucose 100 mg/dL (74-99); Non-African American GFR(CKD) 57 (>60 ml/min/1.73 sqM); Potassium 3.7 mmol/L (3.5-5.1); Sodium 137 mmol/L (137-145); Total Bilirubin 2.1 mg/dL (0.2-1.3); Total Protein 5.1 g/dL (6.3-8.2)
[2024-07-10] MEDS ORDERED: PROPOFOL 10 MG/ML 20 ML VIAL IV ONE (11:18)
[2024-07-10] MEDS ORDERED: SUCCINYLCHOLINE CHLORIDE 200 MG/10 ML VIAL IV ONE (11:18)
[2024-07-10] MEDS ORDERED: NEOSTIGMINE 1 MG/ML 10 ML VIAL ONE (11:18)
[2024-07-10] MEDS ORDERED: ROCURONIUM 10 MG/ML (5 ML VIAL) IV ONE (11:18)
[2024-07-10] MEDS ORDERED: fentaNYL (PF) 50 MCG/ML 2 ML AMP ONE (11:18)
[2024-07-10] MEDS ORDERED: ePHEDrine 50 MG/ML 1 ML VIAL ONE (11:18)
[2024-07-10] MEDS ORDERED: GLYCOPYRROLATE 0.2 MG/ML 2 ML VIAL ONE (11:18)
[2024-07-10] MEDS ORDERED: LIDOCAINE 1% INJ 10MG/ML (20 ML MDV) ONE (11:18)
[2024-07-10] MEDS: LIDOCAINE 1%-EPI 1:100,000 20 ML VIAL SQ ONE (11:45)
--- NOTE | 2024-07-10 12:27 | P.OP ---
Date of Procedure: 07/10/24 Preoperative Diagnosis: Cholecystitis Postoperative Diagnosis: Cholecystitis Procedure(s) Performed: Laparoscopic cholecystectomy Anesthesia: FILI Surgeon: Kenn Fernandez Estimated Blood Loss (ml): 5 Pathology: other (Gallbladder) Condition: stable Disposition: PACU Operative Findings: Hydropic gallbladder Description of Procedure: The patient was placed on the operating table. The patient received a general endotracheal tube anesthesia. The patients abdomen was prepped and draped in the usual sterile fashion. Through an infraumbilical stab incision, the fascia of the anterior abdominal wall was grasped with a pair of Kochers and then the Veress needle was placed in the peritoneal cavity. Position of the Veress needle was confirmed with positive drop test. The abdomen was then insufflated. After adequate insufflation, the 10 mm trocar was placed in the peritoneal cavity. Following this the laparoscope was placed in the peritoneal cavity. The patient was placed in the head-up, right side up position and then a 5 mm trocar was placed in the right lateral and right subcostal position under direct visualization. A 8 mm trocar was placed in the epigastric position. The gallbladder was grasped in the fundus and infundib ulum. Traction on the gallbladder was placed in the lateral and the cephalad positions. The triangle of Calot was visualized.. The cystic duct was bluntly dissected until the union of the cystic duct and common bile duct was seen. A critical view of safety was achieved. The cystic duct was then divided and sealed with the Harmonic scissors. A PDS Endoloop was then placed throughout the cystic duct stump. The cystic artery divided and sealed with the Harmonic scissors. The gallbladder was then removed from the liver bed using Harmonic scissors. The gallbladder was then extracted through the epigastric port site. Operative field was checked for any bleeding spots and Harmonic scissors was used to coagulate the liver bed. The abdomen was irrigated. The trocars were removed. The skin was closed using interrupted 3-0 Vicryl suture. Dermabond dressing were applied. The patient tolerated the procedure well.
[2024-07-10] MEDS: HYDROmorphone 0.5 MG/0.5 ML SYRINGE IVP PRN (13:12)
[2024-07-10] MEDS: HYDROmorphone 1 MG/ML 1 ML SYRINGE IVP PRN (14:13)
--- NOTE | 2024-07-10 14:54 | P.GSCN ---
History of Present Illness Consult date: 07/10/24 Reason for Consult: Urinary retention, hematuria Requesting physician: Gus Rodríguez History of present illness: The patient is a 79-year-old male admitted with abdominal pain. He is scheduled to undergo a cholecystectomy today. He is recently experienced a weak urinary stream and difficulty voiding. He was straight catheterized with return of 950 cc of urine. His urinary retention recurred and a Johnston catheter was placed. The urine became bloody following catheter placement, but is now clearing. As a baseline, the patient denies dysuria and hematuria. He has experienced occasional nocturia. He denies any prior history of UTIs or urolithiasis. He was recently placed on tamsulosin by Dr. Rodríguez and the dosage has been increased to 0.8 mg daily. Review of Systems - Cardiovascular Reports high blood pressure - Genitourinary Reports as per HPI Past Medical History Past Medical History: Cancer, GERD/Reflux, Hyperlipidemia, Hypertension, Osteoarthritis (OA) Additional Past Medical History / Comment(s): SKIN CANCER , TROUBLE SWALLOWING, ELEVATED LIVER ENZYMES-PREVIOUSLY WAS A HEAVY DRINKER", incontinent at night History of Any Multi-Drug Resistant Organisms: None Reported Past Surgical History: Hernia Repair, Orthopedic Surgery Additional Past Surgical History / Comment(s): RIGHT SHOULDER SURG, ING. HERNIA, COLONOSCOPY, CATARACT -BILATERAL EYES, EXCISION OF LESION, Past Anesthesia/Blood Transfusion Reactions: No Reported Reaction Past Psychological History: No Psychological Hx Reported Smoking Status: Former smoker Past Alcohol Use History: None Reported Past Drug Use History: None Reported - Past Family History Mother Family Medical History: Cancer Father Family Medical History: Cancer Medications and Allergies Home Medications Medication Instructions Recorded Confirmed Type Tamsulosin HCl [Flomax] 0.4 mg PO HS 07/29/23 07/09/24 History Aspirin 81 mg PO DAILY #30 tab 07/31/23 07/09/24 Rx Atorvastatin [Lipitor] 80 mg PO HS #30 tab 07/31/23 07/09/24 Rx Clopidogrel [Plavix] 75 mg PO DAILY #30 tab 07/31/23 07/09/24 Rx Allergies Allergy/AdvReac Type Severity Reaction Status Date / Time No Known Allergies Allergy Verified 07/09/24 07:53 Surgical - Exam Vital Signs Temp Pulse Resp BP Pulse Ox 98.0 F 62 21 131/46 100 07/09/24 02:06 07/09/24 02:06 07/09/24 02:06 07/09/24 02:06 07/09/24 02:06 - General well developed, well nourished, no distress - Respiratory normal respiratory effort - Genitourinary Normal phallus, normal scrotum, normal testes. A Johnston catheter is draining faintly blood-tinged urine. - Rectum Rectum: normal sphincter tone, no masses, other (Prostate moderately enlarged and smooth) - Psychiatric oriented to time, oriented to person, oriented to place, speech is normal, memory intact Results - Labs 07/10/24 09:26 07/10/24 08:37 Abnormal Lab Results - Last 24 Hours (Table) 07/10/24 07/10/24 Range/Units 02:50 02:50 WBC 3.5 L (3.8-10.6) k/uL RBC 3.06 L (4.30-5.90) m/uL Hgb 9.9 L D (13.0-17.5) gm/dL Hct 29.9 L (39.0-53.0) % Plt Count 83 L (150-450) k/uL Chloride 110 H (98-107) mmol/L BUN 27 H (9-20) mg/dL Calcium 7.6 L (8.4-10.2) mg/dL Diabetes panel 07/10/24 Range/Units 02:50 Sodium 138 (137-145) mmol/L Potassium 3.5 (3.5-5.1) mmol/L Chloride 110 H (98-107) mmol/L Carbon Dioxide 22 (22-30) mmol/L BUN 27 H (9-20) mg/dL Creatinine 1.02 (0.66-1.25) mg/dL Glucose 99 (74-99) mg/dL Calcium 7.6 L (8.4-10.2) mg/dL Calcium panel 07/10/24 Range/Units 02:50 Calcium 7.6 L (8.4-10.2) mg/dL Pituitary panel 07/10/24 Range/Units 02:50 Sodium 138 (137-145) mmol/L Potassium 3.5 (3.5-5.1) mmol/L Chloride 110 H (98-107) mmol/L Carbon Dioxide 22 (22-30) mmol/L BUN 27 H (9-20) mg/dL Creatinine 1.02 (0.66-1.25) mg/dL Glucose 99 (74-99) mg/dL Calcium 7.6 L (8.4-10.2) mg/dL Adrenal panel 07/10/24 Range/Units 02:50 Sodium 138 (137-145) mmol/L Potassium 3.5 (3.5-5.1) mmol/L Chloride 110 H (98-107) mmol/L Carbon Dioxide 22 (22-30) mmol/L BUN 27 H (9-20) mg/dL Creatinine 1.02 (0.66-1.25) mg/dL Glucose 99 (74-99) mg/dL Calcium 7.6 L (8.4-10.2) mg/dL - Imaging CT scan - abdomen: report reviewed, image reviewed Assessment and Plan (1) Urinary retention Current Visit: Yes Status: Acute Code(s): R33.9 - RETENTION OF URINE, UNSPECIFIED SNOMED Code(s): 800799864 Plan: Continue tamsulosin and Johnston catheter drainage for several days. I would suggest he be given a voiding trial next week. If he is discharged home in the meantime, I would suggest he be discharged home with a catheter and arrangements will be made for the voiding trial through our office. Time with Patient: Greater than 30
[2024-07-10] MEDS: HYDROcodone/APAP 7.5-325MG 1 EACH TAB PO PRN (21:02)
[2024-07-11 07:43] VITALS: BP 135/68; PULSE 61; RESP 17; TEMP 97.9
--- NOTE | 2024-07-11 09:15 | P.PN ---
Subjective Progress Note Date: 07/11/24 Patient feels well. He is postop day 1 from laparoscopic cholecystectomy. He is doing well. He has minimal complaints of pain. On exam vital signs appear stable. Abdomen soft. Status post laparoscopically stable for chronic cholecystitis and hydropic gallbladder. Patient be discharged home today. He will follow-up next week. Objective - Vital Signs Vital signs: Vital Signs Temp 97.9 F 07/11/24 07:00 Pulse 61 07/11/24 07:00 Resp 17 07/11/24 07:00 BP 135/68 07/11/24 07:00 Pulse Ox 98 07/11/24 07:00 FiO2 Intake & Output 07/10/24 07/11/24 07/11/24 18:59 06:59 18:59 Intake Total 900 Output Total 10 600 Balance 890 -600 Intake: IV 800 Oral 100 Output: Urine 600 Estimated Blood Loss 10 Other: Voiding Method Indwelling Catheter Indwelling Catheter - Labs CBC & Chem 7: 07/10/24 09:26 07/10/24 08:37 Labs: Abnormal Lab Results - Last 24 Hours (Table) 07/10/24 07/10/24 Range/Units 08:37 09:26 RBC 3.54 L (4.30-5.90) m/uL Hgb 11.0 L (13.0-17.5) gm/dL Hct 34.7 L (39.0-53.0) % Plt Count 110 L (150-450) k/uL Lymphocytes # 0.5 L (1.0-4.8) k/uL BUN 27 H (9-20) mg/dL Glucose 100 H (74-99) mg/dL Total Bilirubin 2.1 H (0.2-1.3) mg/dL Total Protein 5.1 L (6.3-8.2) g/dL Albumin 3.0 L (3.5-5.0) g/dL Microbiology - Last 24 Hours (Table) 07/09/24 05:00 Urine Culture - Final Urine,Catheterized
[2024-07-11 09:33] LABS: HCT 31.6 % (39.6-50.0); HGB 10.3 g/dL (13.0-17.0); MCH 31.8 pg (27.0-32.0); MCHC 32.6 g/dL (32.0-37.0); MCV 97.5 FL (80.0-97.0); NRBC Per 100 WBC 0 X 10*3/uL (0.00-0.01); Platelet Count 109 X 10*3/uL (140-440); RBC 3.24 X 10*6/uL (4.40-5.60); RDW 13.7 % (11.5-14.5); WBC 5.11 X 10*3/uL (4.50-10.00)
--- NOTE | 2024-07-11 12:01 | P.DS ---
Providers Date of admission: 07/09/24 04:27 Attending physician: Gus Rodríguez Consults: 07/09/24 09:40 Consult Physician Routine Consulting Provider: Kenn Fernandez Consult Reason/Comments: gallbladder distention, gallstones Do you want consulting provider notified?: Already Contacted 07/09/24 09:41 Consult Physician Routine Consulting Provider: Renato No Consult Reason/Comments: cardiac risk assessment Do you want consulting provider notified?: Yes 07/10/24 03:58 Consult Physician Routine Consulting Provider: Terence Mixon Consult Reason/Comments: hematuria, retention Do you want consulting provider notified?: Yes, Notify in am 07/10/24 08:17 Consult Physician Routine Consulting Provider: Nikko Knight Consult Reason/Comments: hematuria, urine retention Do you want consulting provider notified?: Yes Primary care physician: Gus Rodríguez Hospital Course: Final Diagnosis Cystitis status post laparoscopic cholecystectomy Hematuria resolved Urinary retention with indwelling Quintanilla catheter Hypertension Hyperlipidemia Discharge Disposition Patient stable for discharge home he has been cleared by general surgery and will follow-up in the office in [address] Fernandez. He is postoperative day #1 laparoscopic cholecystectomy. He is tolerating diet and having bowel movements. Patient to continue with the Quintanilla catheter on discharge and also to continue on Flomax and see Dr. Knight in the office in 1 week. Hospital Course The patient is a 79-year-old white male with known history of coronary artery disease with myocardial infarction and stent who last night had significant hematuria. Urology has been consulted. No significant new complaints. No nausea or vomiting. He is scheduled for cholecystectomy by Dr. Fernandez. Appreciate input. The patient seems comfortable today with no significant plaint of chest pain. Patient is now postoperative day #1 laparoscopic cholecystectomy he is doing well he is tolerating diet. He is having normal bowel sounds and passing gas. Patient is not having clear urine the hematuria has essentially resolved and he is resumed on his Plavix. He was eval by Dr. Magana recommending to keep the Quintanilla catheter on discharge and follow-up in the office in 1 week. This was discussed with the patient his he agreed to this plan. Please see medication reconciliation for a list of current medications. Thank you for allowing us to participate in the care of this patient. The impression and plan of care has been dictated by Roxann Tavarez, Nurse Practitioner as directed. Dr. Sharla MD I have performed a history and physical examination and medical decision making of this patient, discussed the same with the dictator, and agree with the dictators assessment and plan as written, documented as a scribe. Based on total visit time, I have performed more than 50% of this visit. Patient Condition at Discharge: Fair Plan - Discharge Summary Discharge Rx Participant: No New Discharge Prescriptions: New HYDROcodone/APAP 5-325MG [[place] 5-325] 1 tab PO Q6HR PRN #10 tab PRN Reason: Pain Tamsulosin [Flomax] 0.8 mg PO PC-BRKFST #30 cap Continue Tamsulosin HCl [Flomax] 0.4 mg PO HS Aspirin 81 mg PO DAILY #30 tab Atorvastatin [Lipitor] 80 mg PO HS #30 tab Clopidogrel [Plavix] 75 mg PO DAILY #30 tab Discharge Medication List Tamsulosin HCl [Flomax] 0.4 mg PO HS 07/29/23 [History] Aspirin 81 mg PO DAILY #30 tab 07/31/23 [Rx] Atorvastatin [Lipitor] 80 mg PO HS #30 tab 07/31/23 [Rx] Clopidogrel [Plavix] 75 mg PO DAILY #30 tab 07/31/23 [Rx] HYDROcodone/APAP 5-325MG [[place] 5-325] 1 tab PO Q6HR PRN #10 tab 07/11/24 [Rx] Tamsulosin [Flomax] 0.8 mg PO PC-BRKFST #30 cap 07/11/24 [Rx] Follow up Appointment(s)/Referral(s): Nikko Knight MD [STAFF PHYSICIAN] - 1 Week Gus Rodríguez MD [Primary Care Provider] - 1-2 days Kenn Fernandez MD [STAFF PHYSICIAN] - 1 Week Ambulatory/Diagnostic Orders: Basic Metabolic Panel [LAB.AMB] Time Frame: 3 Days, Location: None Selected Patient Instructions/Handouts: *Surgery [facility] - Laparoscopic Cholecystectomy Discharge Instructions, Chest Pain (DC), Quintanilla Catheter Placement and Care (DC) Activity/Diet/Wound Care/Special Instructions: Keep quintanilla catheter and follow up with Antonia in 1 week. Discharge Disposition: HOME SELF-CARE
[2024-07-11 12:08] LABS: ALT 30 U/L (10-49); AST 41 U/L (14-35); Albumin 3.2 g/dL (3.8-4.9); Albumin/Globulin Ratio 1.88 Ratio (1.60-3.17); Alkaline Phosphatase 40 U/L (41-126); BUN/Creat Ratio 19.73 Ratio (12.00-20.00); Blood Urea Nitrogen 21.7 mg/dL (9.0-27.0); Calcium 8.5 mg/dL (8.7-10.3); Carbon Dioxide 23.3 mmol/L (21.6-31.8); Chloride 106 mmol/L (96-109); Globulin 1.7 g/dL (1.6-3.3); Glucose 155 mg/dL (70-110); Potassium 4.4 mmol/L (3.5-5.5); Sodium 138 mmol/L (135-145); Total Bilirubin 0.8 mg/dL (0.3-1.2); Total Protein 4.9 g/dL (6.2-8.2)
== END 2024-07-11 11:41 | disposition home or self-care (01) ==
LOC: EC 02:03 → 6NMEDSUR 04:27
PROVIDERS: ADMIT Family Medicine; ATTEND Family Medicine
DX: K80.12 Calculus of gallbladder with acute and chronic cholecystitis without obstruction (principal); K82.1 Hydrops of gallbladder; D62 Acute posthemorrhagic anemia; N30.91 Cystitis, unspecified with hematuria; E78.5 Hyperlipidemia, unspecified; K21.9 Gastro-esophageal reflux disease without esophagitis; I10 Essential (primary) hypertension; I25.10 Atherosclerotic heart disease of native coronary artery without angina pectoris; I25.5 Ischemic cardiomyopathy; I25.2 Old myocardial infarction; Z85.828 Personal history of other malignant neoplasm of skin; Z87.891 Personal history of nicotine dependence; Z95.5 Presence of coronary angioplasty implant and graft; Z79.82 Long term (current) use of aspirin; Z79.899 Other long term (current) drug therapy; Z79.02 Long term (current) use of antithrombotics/antiplatelets
CPT/HCPCS: 36415; 74177; 80048; 80053; 81001; 82150; 83690; 83735; 84484; 85025; 85027; 85610; 85730; 87086; 88304; 93005; 93306; 96361; 96365; 96366; 96367; 96375; 96376; 99285